=== PATIENT | female | born 1955 | race Caucasian/White ===

== ENCOUNTER 2020-08-17 11:11 | Outpatient (RCR) | payer MEDICARE, SELFPAY ==
[2020-08-17 11:20] VITALS: BMI 31.1
== END 2020-11-06 14:41 | disposition home or self-care (01) ==
LOC: ANHDMC 11:11
PROVIDERS: PCP Nurse Practitioner Family; Visit Provider Nurse Practitioner Family
DX: R73.03 Prediabetes (principal); N18.1 Chronic kidney disease, stage 1; Z71.3 Dietary counseling and surveillance
CPT/HCPCS: 97802

== ENCOUNTER 2023-01-13 01:05 | Day surgery (SDC) | payer MEDICARE, SELFPAY ==
[2022-12-25 14:12] VITALS: BMI 34.5
--- NOTE | 2023-01-12 18:21 | PM.HPGS ---
History of Present Illness History of Present Illness Consent: Risks, benefits, and alternatives have been discussed and questions answered. Patient agrees to proceed with procedure. Chief complaint: neoplasm screening Narrative: Zenia Torres is a 67 year old female referred for colon cancer screening. Review of Systems Review of Systems: All systems reviewed & are unremarkable except as noted in HPI and below PMFSH Past Medical History Medical History HTN (hypertension) Hyperlipidemia ASTRID (obstructive sleep apnea) Social History Social History Smoking status: Never smoker Alcohol use details: rarely Substance use type: does not use Spiritual care concerns: No Meds Home Medications and Allergies Home Medications Medication Instructions Recorded Confirmed Type atorvastatin 20 mg tablet 20 mg PO DAILY 12/25/22 01/13/23 History cetirizine 10 mg tablet 10 mg PO DAILY 12/25/22 01/13/23 History ergocalciferol (vitamin D2) 1,250 1,250 mcg PO WEEKLY 12/25/22 01/13/23 History mcg (50,000 unit) capsule levothyroxine 125 mcg tablet 125 mcg PO DAILY 12/25/22 01/13/23 History losartan 100 mg tablet 100 mg PO DAILY 12/25/22 01/13/23 History montelukast 10 mg tablet 10 mg PO DAILY 12/25/22 01/13/23 History omega-3 fatty acids 1,000 mg PO DAILY 12/25/22 01/13/23 History psyllium seed (sugar) oral packet 1 packet PO DAILY PRN Constipation 12/25/22 01/13/23 History venlafaxine 37.5 mg tablet 37.5 mg PO TID 12/25/22 01/13/23 History vitamin B complex 1 tablet PO DAILY 12/25/22 01/13/23 History Allergies Allergy/AdvReac Type Severity Reaction Status Date / Time naproxen [From Naprosyn] AdvReac Gastrointestinal Verified 01/13/23 06:46 Upset Exam Const: General: alert Orientation/consciousness: patient oriented x3 Resp: Auscultation: clear to auscultation bilaterally Cardio: Rhythm: regular rhythm GI: GI Palp: Yes Soft to palpation and No Tenderness to palpation present (GI) Neuro: General: patient oriented x3 Assessment and Plan Assessment and plan (1) Colon cancer screening: Code(s): Z12.11 - Encounter for screening for malignant neoplasm of colon Status: Acute Assessment and Plan: Colonoscopy with possible biopsy or polypectomy or cautery or injection of substances.
[2023-01-13 06:47] VITALS: BP 138/90; PULSE 65; RESP 16; TEMP 36.4; O2SAT 99; BMI 34.7
[2023-01-13] MEDS: LACTATED RINGERS 1,000 ML 150 ML IV CONT (07:02)
--- NOTE | 2023-01-13 07:15 | P.PNAN_ITS ---
Anes - Initial Pre Proc Eval Procedure: Operation Date: 01/13/23 08:00 Proposed Procedures p Colonoscopy - Gerhard Cevallos MD Date/Time: 01/13/23 07:15 Surgeon: Gerhard Cevallos MD Pre Op Diagnosis: neoplasm screening Patient Data Age: 67 Gender: F Height: 1.7 m Weight: 100.4 kg Last Vital Signs Temp 36.4 C 01/13/23 06:47 Pulse 65 01/13/23 06:47 Resp 16 01/13/23 06:47 BP 138/90 01/13/23 06:47 Pulse Ox 99 01/13/23 06:47 O2 Del Method Room Air 01/13/23 06:47 Allergies Allergy/AdvReac Type Severity Reaction Status Date / Time naproxen [From Naprosyn] AdvReac Gastrointestinal Verified 01/13/23 06:46 Upset Home Medications Medication Instructions Recorded Confirmed Type atorvastatin 20 mg tablet 20 mg PO DAILY 12/25/22 01/13/23 History cetirizine 10 mg tablet 10 mg PO DAILY 12/25/22 01/13/23 History ergocalciferol (vitamin D2) 1,250 1,250 mcg PO WEEKLY 12/25/22 01/13/23 History mcg (50,000 unit) capsule levothyroxine 125 mcg tablet 125 mcg PO DAILY 12/25/22 01/13/23 History losartan 100 mg tablet 100 mg PO DAILY 12/25/22 01/13/23 History montelukast 10 mg tablet 10 mg PO DAILY 12/25/22 01/13/23 History omega-3 fatty acids 1,000 mg PO DAILY 12/25/22 01/13/23 History psyllium seed (sugar) oral packet 1 packet PO DAILY PRN Constipation 12/25/22 01/13/23 History venlafaxine 37.5 mg tablet 37.5 mg PO TID 12/25/22 01/13/23 History vitamin B complex 1 tablet PO DAILY 12/25/22 01/13/23 History Patient hx anesthesia problems: none Family hx anesthesia problems: none Results Review: All pre-operative results and documents have been reviewed as part of the pre- operative evaluation. [facility] Past Medical History Medical History (Updated 01/13/23 @ 07:16 by Shadi Cai MD) HTN (hypertension) Hyperlipidemia ASTRID (obstructive sleep apnea) Social History Social History Smoking status: Never smoker Alcohol use details: rarely Substance use type: does not use Spiritual care concerns: No Anes - Eval Final PreProcedure Day of Procedure 01/13/23 07:15 Patient weight: obese Heart: regular rate and rhythm Lungs: clear to auscultation Airway: Mallampati scale class II Neurological: alert and oriented Last oral intake: >/= 8 hours ASA classification: III Emergent: no Anesthetic plan: proceed Anesthesia type and monitoring: general GIVS and standard monitoring Results Review: All pre-operative results and documents have been reviewed as part of the pre- operative evaluation. Informed Consent: The patient's anesthetic plan and its attendant risks and benefits were discussed with the patient/family/POA. Questions were solicited and answers provided to the satisfaction of the patient/family/POA.
[2023-01-13 08:29] VITALS: BP 117/84; PULSE 78; RESP 20; O2SAT 97
[2023-01-13 08:39] VITALS: BP 136/86; PULSE 76; RESP 18; O2SAT 97
[2023-01-13 08:48] VITALS: BP 138/84; PULSE 78; RESP 18; O2SAT 97
--- NOTE | 2023-01-13 10:45 | SUR.PHASEII ---
1035 Patient called the Surgery Director James Mims with concerns of her mouth being extremely dry and when she attempted to eat she choked on her food twice. She expressed to him her concerns that she maybe having an reaction to the anesthesia. 1037 I called patient to check on her and review her symptoms. Patient states her mouth feels real pasty and extremely dry like she has no saliva in her mouth. She also complains the the roof of her mouth is raw and her throat is really sore and increasingly getting worse since she was discharged. I told the patient that I would speak with her MOTOR ROUTE CARRIER about her concerns and would get back to her as soon as I talked with her Lazara her MOTOR ROUTE CARRIER. 1040 I spoke with Lazara the MOTOR ROUTE CARRIER about the patient complaints/concerns. Alzara said she had to give her several doses of glycopyrrolate because of her low heart rate during the procedure which will cause her mouth to be dry probably most of the day today. Dr. Cevallos was also present for this conversation. Dr. Cevallos recommended the patient try drinking frequent amounts of water to day and could try sucking on a piece of hard candy to help with the mouth dryness. I also mention to the Lazara that the patient complained that the roof of her mouth felt raw and that her throat is sore. Brittny said she did have to use some oral suction because the patient had vomited during the procedure and she was able to suction her out but that it is possible that the acid from the vomit is what is causing the raw and soreness. 1045 I called the patient back and went over the conversation that I had with Brittny about the medication she received during the procedure and the side effects of the mouth dryness. We discussed taking frequent sips of water to help with the dryness and also using hard candy to help with the moisture. I mention that if the roof of her mouth was to sore for the hard candy to try putting it on the side of her mouth to help the pain of the roof of her mouth. I did tell that we would call her tomorrow to check on her as well. Patient voiced understanding and also asked that in the future if we could relay this information to the patient with the discharge instructions that would be better. I told her I would follow up with the anesthesia team to see if we could make that change. I thanked her for the suggestion.
== END 2023-01-13 09:10 | disposition home or self-care (01) ==
PROVIDERS: PCP Nurse Practitioner Family; Visit Provider Internal Medicine Gastroenterology
PROC: 0DJD8ZZ Inspection of Lower Intestinal Tract, Via Natural or Artificial Opening Endoscopic (ICD-10-PCS; CPT 45378; principal; 2023-01-13 08:00)
DX: Z12.11 Encounter for screening for malignant neoplasm of colon (principal); D12.2 Benign neoplasm of ascending colon; K64.8 Other hemorrhoids; K57.30 Diverticulosis of large intestine without perforation or abscess without bleeding; I10 Essential (primary) hypertension; E78.5 Hyperlipidemia, unspecified; G47.33 Obstructive sleep apnea (adult) (pediatric); E66.9 Obesity, unspecified; Z68.34 Body mass index [BMI] 34.0-34.9, adult
CPT/HCPCS: 45385; 88305; J2704; J7120

== ENCOUNTER 2024-07-02 13:08 | Outpatient (CLI) | payer MEDICARE, SELFPAY ==
--- NOTE | ~2024-07-02 | CT_ITS ---
CLINICAL INDICATION: Chronic right hip pain. COMPARISON: Reference is made to MRI examination of both the pelvis and the right hip. TECHNIQUE: Computed tomography (CT) of the pelvis was performed without intravenous contrast. The dos e-length product was 888.57 mGy-cm. FINDINGS/OBSERVATIONS: Gastrointestinal tract: Unremarkable Vasculature: Unremarkable Lymph nodes: Limited evaluation without intravenous contrast Pelvic structures:14 mm calcification projecting over the left ovary, possibly perioperative. The wero dder is only minimally distended. Body wall and musculoskeletal: No asymmetry within the musculature of the pelvis or right hip. IMPRESSION: No acute fracture. Unremarkable CT examination of the pelvis, as detailed above. Reviewed, dictated and finalized at location A. [employer] TECHNICIAN
--- OUTSIDE RECORDS SUMMARY | 2024-07-02 13:13 | XMS_ITS | Clinical Summary ---
Author Organization [facility] Address [address] [place] [address] Care Team Providers Care Maintenance Shop Laborer Name Role Phone Angie Waite MD Primary Care Provider [phone] Source Comments [facility],non-owned Affiliates and Associated Physician Practices is amultiple site organization consisting of ambulatory clinics and hospital sitesin [place], [place], [place] and [place]. This disclosure is being madepursuant to the Care Everywhere program and may not contain all information available regarding this patient. Last updated 18.[facility] Allergies Active Allergy Reactions Criticality Noted Date Comments Naproxen Other 08/25/2018 syncope Medications * Be aware that medications may not be up to date on this document. Alwaysverify current medications with the patient. Medication Sig Dispensed Refills Start Date End Date Status lisinopril-hydroCHLOR Othiazide (PRINZIDE; ZESTORETIC) 20-12.5 MG tablet Take 1 tablet by mouth once daily Active levothyroxine (SYNTHROID) 112 MCG tablet Take 112 mcg by mouth daily before breakfast Active montelukast (SINGULAIR) 10 MG tablet Take 10 mg by mouth at bedtime Active venlafaxine (EFFEXOR) 37.5 MG tablet Take 37.5 mg by mouth 3 times daily with meals Active cetirizine (ZYRTEC) 10 MG tablet Take 10 mg by mouth once daily Active Potassium 99 MG tablet Take 99 mg by mouth once daily Active Cholecalciferol (VITAMIN D3 PO) Active Social History Tobacco Use Types Packs/Day Years Used Date Smoking Tobacco: Never Assessed Sex and Gender Information Value Date Recorded Sex Assigned at Not on file Gender Identity Not on file Sexual Orientation Not on file Plan of Treatment Health Maintenance Due Date Last Done Comments BONE DENSITY TESTING 1955 COLOGUARD (AGES 45-75) - COL ON CA SCREENING 1953 COLON MONITORING 1953 COLONOSCOPY - COLON CA SCREENING 1953 CT COLONOGRAPHY - COLON CA SCREENING 1953 Colorectal Cancer Screening 1953 FIT - COLON CA SCREENING 1953 FLEX SIG - COLON CA SCREENING 1953 LIPID TESTING 1953 MAMMOGRAM 1953 MEDICARE AWV 12 MONTHS 1953 HEPATITIS C SCREENING 05/07/1971 DTAP/TDAP/TD VACCINES (1 - Tdap) 1972 PNEUMOCOCCAL VACCINE 50+ (1 of 1 - PCV) 2003 ZOSTER VACCINE (1 of 2) 2003 COVID-19 VACCINE ( - 2023-2 5 season) 2024 INFLUENZA VACCINE (#1) 2024 DEPRESSION SCREENING 05/26/2024 Respiratory Syncytial Virus (RSV) Vaccine Pt: or over 60 yrs (1 - 1-dose 75+ series) 2028 HEPATITIS B VACCINE Aged Out No longe r eligible based on patient's age to complete this topic HIB VACCINE Aged Out No longer eligi ble based on patient's age to complete this topic HPV VACCINE Aged Out No longer eligi ble based on patient's age to complete this topic MENINGOCOCCAL (Group B) VACCINE Aged Out No longer eligible based on patient's age to complete this topic MENINGOCOCCAL VACCINE Aged Out No poonam pako eligible based on patient's age to complete this topic Care Teams Maintenance Shop Laborer Relationship Specialty Start Date End Date Angie Waite MD [address] [facility] [address] [place] [phone] PCP - General Internal Medicine 08/25/18
--- OUTSIDE RECORDS SUMMARY | 2024-07-02 13:13 | XMS_ITS | Patient Health Summary ---
Author Organization [facility] Address [address] [place] [address] Care Team Providers Care Paper Making Machine Operator Name Role Phone Angie Waite MD Primary Care Provider [phone] Note from [facility],non-owned Affiliates and Associated Physician Practices is amultiple site organization consisting of ambulatory clinics and hospital sitesin [place], [place], [place] and [place]. This disclosure is being madepursuant to the Care Everywhere program and may not contain all information available regarding this patient. Last updated 18.[facility] Allergies * Naproxen(Other) Medications * Be aware that medications may not be up to date on this document. Alwaysverify current medications with the patient. * lisinopril-hydroCHLOROthiazide (PRINZIDE; ZESTORETIC) 20-12.5 MG tablet Take 1 tablet by mouth once daily * levothyroxine (SYNTHROID) 112 MCG tablet Take 112 mcg by mouth daily before breakfast * montelukast (SINGULAIR) 10 MG tablet Take 10 mg by mouth at bedtime * venlafaxine (EFFEXOR) 37.5 MG tablet Take 37.5 mg by mouth 3 times daily with meals * cetirizine (ZYRTEC) 10 MG tablet Take 10 mg by mouth once daily * Potassium 99 MG tablet Take 99 mg by mouth once daily * Cholecalciferol (VITAMIN D3 PO) Social History Tobacco Use Types Packs/Day Years Used Date Smoking Tobacco: Never Assessed Sex and Gender Information Value Date Recorded Sex Assigned at Not on file Gender Identity Not on file Sexual Orientation Not on file Procedures * DERMATOPATHOLOGY(Performed 08/12/2023) Performed for Neoplasm of uncertain behavior of skin * SKIN TEST PPD - POINT OF CARE(Performed 08/25/2018) Performed for Screening examination for pulmonary tuberculosis Results * DERMATOPATHOLOGY (08/12/2023 3:33 AM CDT) Case Report Dermatopathology Report Case: [id number] Authorizing Provider: Pako Campbell MD Collected: 08/12/2023 03:33 AM Ordering Location: [facility] - Received: 08/13/2023 12:07 PM DermPath Lab Pathologist: Shruti Pennington MD Specimen: Skin, left medial malar cheek 2:09 PM CDT DERMATOPATHOLOGY LABORATORY Final Diagnosis Specimen A. SKIN, left medial malar cheek: BASAL CELL CARCINOMA, NODULAR TYPE (C44.319) 2:09 PM CDT DERMATOPATHOLOGY LABORATORY Clinical History Neoplasm of Uncertain Behavior vs Basal Cell Carcinoma 2:09 PM CDT DERMATOPATHOLOGY LABORATORY Gross Description Specimen A: Received is one formalin filled container labeled with the patient's name and designated left medial malar cheek. The specimen consists of a shave biopsy measuring 5x3x1 mm. Jar 0. 2:09 PM CDT DERMATOPATHOLOGY LABORATORY Microscopic Description Specimen A. SKIN, left medial malar cheek: Within the dermis there are aggregates of basaloid cells with a high nuclear to cytoplasmic ratio and peripheral palisading. 2:09 PM CDT DERMATOPATHOLOGY LABORATORY Disclaimer An external and internal positive and negative controls are appropriate for the histochemical, immunohistochemical and immunofluorescence stain(s) in this case (if any), except where stated explicitly. The performance characteristics of the stain(s) cited in this report were developed and its performance characteristic determined by the Dermatopathology Laboratory at [facility], directed by Dr. Jose Cooper. These tests need not be, and therefore are not, approved by the [place] Food and Drug Administration. The tests are used for clinical purposes. Billing Codes Specimen Charges Stain Charges 19069 1 4 2:09 PM CDT DERMATOPATHOLOGY LABORATORY Embedded Images 2:09 PM CDT DERMATOPATHOLOGY LABORATORY Pathology/Cytolo gy TISSUE SPECIMEN FROM SKIN / Unknown 08/12/2023 3:33 AM CDT 08/13/2023 12:07 PM CDT Pako Campbell MD LAB - PATHOLOGY/CYTO LOGY ORDERABLES DERMATOPATHOLOGY LABORATORY [facility] Department of Dermatology [address] [phone] * SKIN TEST PPD - POINT OF CARE (08/25/2018) PPD 0 mm normal no induration Other MISCELLANEOUS SAMPLE S / Unknown 08/25/2018 Mary Rosario [employer] EQUIPMENT OPERATOR-PRINT MACHINE OPERATOR LAB - POINT O F CARE ORDERABLES Care Teams Paper Making Machine Operator Relationship Specialty Start Date End Date Angie Waite MD [address] [facility] [address] [place] [phone] PCP - General Internal Medicine 08/25/18
--- OUTSIDE RECORDS SUMMARY | 2024-07-02 13:13 | XMS_ITS | Encounter Summary ---
Author Organization [facility] Address [address] [place] [address] Care Team Providers Care Support Manager Name Role Phone Angie Waite MD Primary Care Provider [phone] Encounter Details Date Type Department Care Team (Late st Contact Info) Description 08/12/2023 Lab Requisition [facility] - DermPath Lab [address] [place] [id number] Pako Campbell MD [facility] DERMATOLOGY [address] [place] [phone] Neoplasm of uncertain behavior of skin Social History Tobacco Use Types Packs/Day Years Used Date Smoking Tobacco: Never Assessed Sex and Gender Information Value Date Recorded Sex Assigned at Not on file Gender Identity Not on file Sexual Orientation Not on file documented as of this encounter Plan of Treatment Not on file documented as of this encounter Procedures Procedure Name Priority Date/Time Associated Diagnosis Comments DERMATOPATHOLOGY Routine 08/12/2023 3:33 AM CDT Neoplasm of uncertain behavior of skin documented in this encounter Results * DERMATOPATHOLOGY (08/12/2023 3:33 AM CDT) Case Report Dermatopathology Report Case: [id number] Authorizing Provider: Pako Campbell MD Collected: 08/12/2023 03:33 AM Ordering Location: [facility] - Received: 08/13/2023 12:07 PM DermPath Lab Pathologist: Shruti Pennington MD Specimen: Skin, left medial malar cheek 03/21/202 4 2:09 PM CDT DERMATOPATHOLOGY LABORATORY Final Diagnosis Specimen A. SKIN, left medial malar cheek: BASAL CELL CARCINOMA, NODULAR TYPE (C44.319) 4 2:09 PM CDT DERMATOPATHOLOGY LABORATORY Clinical History Neoplasm of Uncertain Behavior vs Basal Cell Carcinoma 4 2:09 PM CDT DERMATOPATHOLOGY LABORATORY Gross Description Specimen A: Received is one formalin filled container labeled with the patient's name and designated left medial malar cheek. The specimen consists of a shave biopsy measuring 5x3x1 mm. Jar 0. 4 2:09 PM CDT DERMATOPATHOLOGY LABORATORY Microscopic Description Specimen A. SKIN, left medial malar cheek: Within the dermis there are aggregates of basaloid cells with a high nuclear to cytoplasmic ratio and peripheral palisading. 4 2:09 PM CDT DERMATOPATHOLOGY LABORATORY Disclaimer An external and internal positive and negative controls are appropriate for the histochemical, immunohistochemical and immunofluorescence stain(s) in this case (if any), except where stated explicitly. The performance characteristics of the stain(s) cited in this report were developed and its performance characteristic determined by the Dermatopathology Laboratory at [facility], directed by Dr. Jose Cooper. These tests need not be, and therefore are not, approved by the [place] Food and Drug Administration. The tests are used for clinical purposes. Billing Codes Specimen Charges Stain Charges 57114 1 4 2:09 PM CDT DERMATOPATHOLOGY LABORATORY Embedded Images 4 2:09 PM CDT DERMATOPATHOLOGY LABORATORY Pathology/Cytolo gy TISSUE SPECIMEN FROM SKIN / Unknown 08/12/2023 3:33 AM CDT 08/13/2023 12:07 PM CDT Pako Campbell MD LAB - PATHOLOGY/CYTO LOGY ORDERABLES DERMATOPATHOLOGY LABORATORY [facility] - Department of Dermatology [address] [phone] documented in this encounter Visit Diagnoses Diagnosis Neoplasm of uncertain behavior of skin documented in this encounter Care Teams Support Manager Relationship Specialty Start Date End Date Angie Waite MD [address] [place] [address] [place] [phone] PCP - General Internal Medicine 08/25/18 documented as of this encounter
--- OUTSIDE RECORDS SUMMARY | 2024-07-02 13:13 | XMS_ITS | Referral Summary ---
Author Organization [facility] Address [address] [place] [address] Care Team Providers Care Religion Professor Name Role Phone Angie Waite MD Primary Care Provider [phone] Source Comments [facility] [id number],non-owned Affiliates and Associated Physician Practices is amultiple site organization consisting of ambulatory clinics and hospital sitesin [place], [place], [place] and [place]. This disclosure is being madepursuant to the Care Everywhere program and may not contain all information available regarding this patient. Last updated 18.[facility] [id number] Allergies Active Allergy Reactions Criticality Noted Date [...] Orientation Not on file Plan of Treatment Not on file Administered Medications Care Teams Religion Professor Relationship Specialty Start Date End Date Angie Waite MD [address] [facility] [address] [place] [phone] PCP - General Internal Medicine 08/25/18
--- OUTSIDE RECORDS SUMMARY | 2024-07-02 13:14 | XMS_ITS | CONTINUITY OF CARE DOCUMENT ---
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 Role Phone Nelson ARROYO, Demetria Unavailable [phone] ROSSYMILKAGHANSHYAM Unavailable [phone] HOPGAGANDEEP JARQUINIE Unavailable [phone] PROBLEMS Condition Status Date Provider Notes Chest pressure--stress nuc normal 06/2021,, mild diastolic dysfn on echo 11/2019 active Demetria Ashford MD CKD active Amari Robb Family History of Sudden Car diac : completed - Demetria Ashford MD Gout active Demetria Ashford MD Hypothyroidism active Demetria Ashford MD Hypertension active Demetria Ashford MD Pre-diabetes active Demetria Ashford MD FAMILY HISTORY OF HEART DISEASE active Bo Ashford MD Hyperlipidemia active Demetria Ashford MD Vaccination--covid vaccine, pfizer 06/2020 completed - Amari Robb ENCOUNTERS Date Type Provider Location Encounter Diag nosis - In-person encounter Office Visit Demetria Ashford MD [place] [facility] CKDVaccination--covid vaccine, pfizer 06/2020 - In-person encounter Office Visit Demetria Ashford MD [facility] - In-person encounter Office Visit Demetria Ashford MD [facility] - In-person encounter Office Visit Demetria Ashford MD [facility] Chest pressure--stress nuc normal 06/2021,, mild diastolic dysfn on echo 11/2019 - In-person encounter Office Visit Kenneth Miranda MD [facility] - In-person encounter Office Visit Demetria Ashford MD [facility] Chest pressure--stress nuc normal 06/2021,, mild diastolic dysfn on echo 11/2019Family History of Sudden Cardiac :FAMILY HISTORY OF HEART DISEASEHyperlipidemia - In-person encounter Office Visit Demetria Ashford MD [place] [facility] Chest pressure--stress nuc normal 06/2021,, mild diastolic dysfn on echo 11/2019CKDGoutHypothyroidismH ypertensionPre-diabetes VITAL SIGNS Date Observation Value Provider Body Mass Index (Ratio) 33.98 kg/m2 Bo Ashford MD blood pressure, diastolic 94 mm[Hg] Milton Murillo RN blood pressure, systolic 129 mm[Hg] Oma Murillo RN oxygen saturation, oximetry 98 % Oma Murillo RN respiratory rate E&M 18 /min Oma ibanez RN pulse rate, standing 98 /min Oma ibanez RN weight E&M 217 [lb_av] Oma Murillo RN Body Mass Index (Ratio) 34.42 kg/m2 Bo Ashford MD blood pressure, diastolic 93 mm[Hg] Tamara nkLogcathy blood pressure, systolic 151 mm[Hg] Nida Sethogcathy respiratory rate E&M 20 /min Merary Moise pulse rate 71 /min Merary Moise blood pressure, cuff size regular Sanjuana Moise blood pressure, diastolic 93 mm[Hg] Sanjuana Moise blood pressure, systolic 151 mm[Hg] Jacquelyn Moise oxygen saturation, oximetry 98 % Merary Moise weight E&M 219.8 [lb_av] Merary Moise height E&M 67 [in_i] Merary Moise Body Mass Index (Ratio) 34.58 kg/m2 Bo Ashford MD blood pressure, cuff size large Marcelo alvarez [place] blood pressure, diastolic 97 mm[Hg] Ta kim [place] blood pressure, systolic 134 mm[Hg] [facility] oxygen saturation, oximetry 97 % [facility] respiratory rate E&M 16 /min [facility] pulse rate 73 /min [facility] weight E&M 220.8 [lb_av] [facility] height E&M 67 [in_i] [facility] Body Mass Index (Ratio) 36.18 kg/m2 Bo Ashford MD blood pressure, cuff size regular Sa ra Rodriguez blood pressure, diastolic 76 mm[Hg] Sa ra Rodriguez blood pressure, systolic 121 mm[Hg] Guerrero a Rodriguez oxygen saturation, oximetry 97 % Irish Rodriguez respiratory rate E&M 17 /min Irish Si ms pulse rate 73 /min Irish Rodriguez weight E&M 231 [lb_av] Irish Rodriguez height E&M 67 [in_i] Irish Rodriguez Body Mass Index (Ratio) 35.71 kg/m2 Gagandeep philip Ramsey blood pressure, diastolic 84 mm[Hg] Li nkLogic blood pressure, systolic 130 mm[Hg] Nida kLogic blood pressure, cuff size large Ke rri Grueneelpidio blood pressure, diastolic 84 mm[Hg] Ke rri Gruenenfelder blood pressure, systolic 130 mm[Hg] Praveen Warrenelder oxygen saturation, oximetry 94 % Karina Robisoner respiratory rate E&M 16 /min Karina moraleselder pulse rate 80 /min Karina Warrene lder weight E&M 228 [lb_av] Karina Warrene lder height E&M 67 [in_i] Karina Warrene er Body Mass Index (Ratio) 32.57 kg/m2 Bo Ashford MD blood pressure, diastolic 82 mm[Hg] Li nkLogic blood pressure, systolic 118 mm[Hg] Nida kLogic oxygen saturation, oximetry 97 % Chastity Katie blood pressure, diastolic 82 mm[Hg] Ch astity Katie blood pressure, systolic 118 mm[Hg] Chikis stity Katie pulse rate 87 /min Chastity Katie respiratory rate E&M 16 /min Chastit y Katie weight E&M 208 [lb_av] Chastity Katie height E&M 67 [in_i] Chastity Katie Body Mass Index (Ratio) 33.36 kg/m2 Bo Ashford MD blood pressure, resting Yes Tons higginbotham Gomez pulse rate 84 /min Tonsha Gomez oxygen saturation, oximetry 98 % Tonsha Gomez respiratory rate E&M 16 /min Tonsha Gomez blood pressure, diastolic 84 mm[Hg] To nsha Gomez blood pressure, systolic 128 mm[Hg] Ton sha Gomez weight E&M 213 [lb_av] Tonsha Gomez height E&M 67 [in_i] Tonsha Gomez weight E&M 219 [lb_av] Jenise Montour height E&M 67 [in_i] Jenise Casas ALLERGIES Allergy Name Onset Date Reaction Criticality Status OZEMPIC GI sxs High Criticality active NAPROSYN High Criticality active RESULTS Date Observation Value Provider Reference Range Interpretation Location hemoglobin A1C, blood, as % of total hemoglobin 6.4 % OF TOTAL HGB [facility] <5.7 High thyroid stimulating hormone, serum 0.78 u[IU]/mL [facility] 0.40-4.50 Normal thyroxine, serum, free 1.1 ng/dL [facility] 0.8-1.8 Normal triiodothyronine (T3), serum 92 ng/dL [facility] 76-181 Normal basophils as percent of blood leukocytes 1.7 % [facility] Normal eosinophils as percent of blood leukocytes 5.0 % [facility] Normal monocyte count, blood 6.8 % [facility] Normal lymphocyte count, blood 38.9 % [facility] Normal neutrophils as percent of blood leukocytes 47.6 % [facility] Normal basophils, absolute, manual 102 cells/mcL [facility] 0-200 Normal eosinophils, absolute, manual 300 cells/mcL [facility] 15-500 Normal monocytes, absolute, manual 408 cells/mcL [facility] 200-950 Normal lymphocytes, absolute 2334 CELLS/UL [facility] 850-3900 Normal Absolute Neutrophil count 2856 cells/mcL [facility] 3424-7721 Normal mean platelet volume 12.1 fL [facility] 7.5-12.5 Normal platelet count 193 THOUSAND/UL [facility] 140-400 Normal red blood cell distribution width 13.9 % [facility] 11.0-15.0 Normal mean corpuscular hemoglobin concentration, RBC 31.9 G/DL [facility] 32.0-36.0 Low mean corpuscular hemoglobin, RBC 28.2 pg [facility] 27.0-33.0 Normal mean corpuscular volume, RBC 88.3 fL [facility] 80.0-100.0 Normal hematocrit, blood 42.3 % [facility] 35.0-45.0 Normal hemoglobin electrophoresis, blood 13.5 [facility] 11.7-15.5 Normal erythrocyte (RBC) count 4.79 MILLION/UL [facility] 3.80-5.10 Normal leukocyte (white blood cells) count, blood 6.0 THOUSAND/UL [facility] 3.8-10.8 Normal alanine aminotransferase (SGPT), serum 26 1/L [facility] 6-29 Normal aspartate aminotransferase (SGOT), serum 25 1/L [facility] 10-35 Normal alkaline phosphatase, serum 74 1/L [facility] 37-153 Normal bilirubin, serum, total 0.3 mg/dL [facility] 0.2-1.2 Normal albumin/globulin ratio, serum 1.8 (calc) [facility] 1.0-2.5 Normal globulins, serum, total 2.2 G/DL (CALC) [facility] 1.9-3.7 Normal albumin, serum 4.0 g/dL [facility] 3.6-5.1 Normal protein, total, serum 6.2 g/dL [facility] 6.1-8.1 Normal calcium, serum 8.6 mg/dL [facility] 8.6-10.4 Normal carbon dioxide, venous blood 26 mmol/L [facility] 20-32 Normal chloride, serum 106 mmol/L [facility] 98-110 Normal potassium, serum 4.1 mmol/L [facility] 3.5-5.3 Normal sodium, serum 140 mmol/L [facility] 135-146 Normal urea nitrogen/creatinine ratio, serum 20 (calc) [facility] 6-22 Normal creatinine, serum 1.16 mg/dL [facility] 0.60-1.00 High urea nitrogen, blood 23 mg/dL [facility] 7-25 Normal blood glucose, random 105 mg/dL [facility] 65-99 High cholesterol, non-HDL, total 74 MG/DL (CALC) [facility] <130 Normal cholesterol/HDL ratio, serum, percent 2.1 (calc) [facility] <5.0 Normal LDL cholesterol, serum 61 MG/DL (CALC) [facility] Normal triglyceride, serum, fasting 45 mg/dL [facility] <150 Normal HDL cholesterol, serum 65 mg/dL [facility] > OR = 50 Normal cholesterol, serum 139 mg/dL [facility] <200 Normal hemoglobin A1C, blood, as % of total hemoglobin 5.9 % OF TOTAL HGB [facility] <5.7 High thyroxine, serum, free 1.2 ng/dL [facility] 0.8-1.8 Normal thyroid stimulating hormone, serum 1.30 u[IU]/mL [facility] 0.40-4.50 Normal cholesterol, non-HDL, total 70 MG/DL (CALC) [facility] <130 Normal cholesterol/HDL ratio, serum, percent 2.1 (calc) [facility] <5.0 Normal LDL cholesterol, serum 56 MG/DL (CALC) [facility] Normal triglyceride, serum, fasting 49 mg/dL [facility] <150 Normal HDL cholesterol, serum 62 mg/dL [facility] > OR = 50 Normal cholesterol, serum 132 mg/dL [facility] <200 Normal hemoglobin A1C, blood, as % of total hemoglobin 6.0 % OF TOTAL HGB [facility] <5.7 High cholesterol, non-HDL, total 81 MG/DL (CALC) [facility] <130 Normal cholesterol/HDL ratio, serum, percent 2.0 (calc) [facility] <5.0 Normal LDL cholesterol, serum 67 MG/DL (CALC) [facility] Normal triglyceride, serum, fasting 48 mg/dL [facility] <150 Normal HDL cholesterol, serum 78 mg/dL [facility] > OR = 50 Normal cholesterol, serum 159 mg/dL [facility] <200 Normal hyaline casts, urine NONE SEEN [facility] NONE SEEN Normal bacteria, urine microscopy NONE SEEN [facility] NONE SEEN Normal epithelial cells, urine NONE SEEN [facility] < OR = 5 Normal RBC urine by microscopy NONE SEEN [facility] < OR = 2 Normal WBC urine on microscopy 0-5 /HPF [facility] < OR = 5 Normal leukocyte esterase, urine, by dipstick 1+ [facility] NEGATIVE Abnormal nitrite, urine, semiquantitative NEGATIVE [facility] NEGATIVE Normal blood in urine (hemoglobin) by dipstick NEGATIVE [facility] NEGATIVE Normal ketones, urine, by test strip NEGATIVE [facility] NEGATIVE Normal bilirubin, urine NEGATIVE [facility] NEGATIVE Normal glucose, urine, semiquantitative NEGATIVE [facility] NEGATIVE Normal pH, urine, semiquantitative 5.5 [facility] 5.0-8.0 Normal specific gravity, urine 1.014 [facility] 1.001-1.035 Normal appearance, urine CLEAR [facility] CLEAR Normal urine color YELLOW [facility] YELLOW Normal protein, urine, semiquantitative (dipstick) NEGATIVE [facility] NEGATIVE Normal basophils as percent of blood leukocytes 1.9 % [facility] Normal eosinophils as percent of blood leukocytes 6.2 % [facility] Normal monocyte count, blood 6.9 % [facility] Normal lymphocyte count, blood 38.3 % [facility] Normal neutrophils as percent of blood leukocytes 46.7 % [facility] Normal basophils, absolute, manual 103 cells/mcL [facility] 0-200 Normal eosinophils, absolute, manual 335 cells/mcL [facility] 15-500 Normal monocytes, absolute, manual 373 cells/mcL [facility] 200-950 Normal lymphocytes, absolute 2068 CELLS/UL [facility] 850-3900 Normal Absolute Neutrophil count 2522 cells/mcL [facility] 1212-0195 Normal mean platelet volume 12.1 fL [facility] 7.5-12.5 Normal platelet count 210 THOUSAND/UL [facility] 140-400 Normal red blood cell distribution width 13.7 % [facility] 11.0-15.0 Normal mean corpuscular hemoglobin concentration, RBC 32.2 G/DL [facility] 32.0-36.0 Normal mean corpuscular hemoglobin, RBC 27.0 pg [facility] 27.0-33.0 Normal mean corpuscular volume, RBC 83.9 fL [facility] 80.0-100.0 Normal hematocrit, blood 41.3 % [facility] 35.0-45.0 Normal hemoglobin electrophoresis, blood 13.3 [facility] 11.7-15.5 Normal erythrocyte (RBC) count 4.92 MILLION/UL [facility] 3.80-5.10 Normal leukocyte (white blood cells) count, blood 5.4 THOUSAND/UL [facility] 3.8-10.8 Normal albumin, serum 4.3 g/dL [facility] 3.6-5.1 Normal phosphate, serum 4.1 mg/dL [facility] 2.1-4.3 Normal carbon dioxide, venous blood 29 mmol/L [facility] 20-32 Normal chloride, serum 107 mmol/L [facility] 98-110 Normal potassium, serum 4.6 mmol/L [facility] 3.5-5.3 Normal sodium, serum 141 mmol/L [facility] 135-146 Normal urea nitrogen/creatinine ratio, serum 19 (calc) [facility] 6-22 Normal Estimated Glomerular Filtration Rate (calc) 48 mL/min/{1.7 3_m2} [facility] > OR = 60 Low creatinine, serum 1.31 mg/dL [facility] 0.50-0.99 High urea nitrogen, blood 25 mg/dL [facility] 7-25 Normal blood glucose, random 95 mg/dL [facility] 65-99 Normal calcium, serum 9.3 mg/dL [facility] 8.6-10.4 Normal microalbumin/creatin ine ratio, urine 4 MCG/MG CREAT [facility] <30 Normal microalbumin/total urine volume 3 mg/L [facility] Units converted. See lab report for original value. Normal creatinine, random, urine 80 mg/dL [facility] 20-275 Normal hemoglobin A1C, blood, as % of total hemoglobin 5.7 % OF TOTAL HGB [facility] <5.7 High basophils as percent of blood leukocytes 2.1 % [facility] Normal eosinophils as percent of blood leukocytes 3.7 % [facility] Normal monocyte count, blood 7.1 % [facility] Normal lymphocyte count, blood 38.3 % [facility] Normal neutrophils as percent of blood leukocytes 48.8 % [facility] Normal basophils, absolute, manual 101 cells/mcL [facility] 0-200 Normal eosinophils, absolute, manual 178 cells/mcL [facility] 15-500 Normal monocytes, absolute, manual 341 cells/mcL [facility] 200-950 Normal lymphocytes, absolute 1838 CELLS/UL [facility] 850-3900 Normal Absolute Neutrophil count 2342 cells/mcL [facility] 9782-5887 Normal mean platelet volume 12.2 fL [facility] 7.5-12.5 Normal platelet count 216 THOUSAND/UL [facility] 140-400 Normal red blood cell distribution width 13.1 % [facility] 11.0-15.0 Normal mean corpuscular hemoglobin concentration, RBC 32.3 G/DL [facility] 32.0-36.0 Normal mean corpuscular hemoglobin, RBC 28.1 pg [facility] 27.0-33.0 Normal mean corpuscular volume, RBC 86.9 fL [facility] 80.0-100.0 Normal hematocrit, blood 41.2 % [facility] 35.0-45.0 Normal hemoglobin electrophoresis, blood 13.3 [facility] 11.7-15.5 Normal erythrocyte (RBC) count 4.74 MILLION/UL [facility] 3.80-5.10 Normal leukocyte (white blood cells) count, blood 4.8 THOUSAND/UL [facility] 3.8-10.8 Normal hyaline casts, urine NONE SEEN [facility] NONE SEEN Normal bacteria, urine microscopy NONE SEEN [facility] NONE SEEN Normal epithelial cells, urine NONE SEEN [facility] < OR = 5 Normal RBC urine by microscopy NONE SEEN [facility] < OR = 2 Normal WBC urine on microscopy 0-5 /HPF [facility] < OR = 5 Normal protein, urine, semiquantitative (dipstick) NEGATIVE [facility] NEGATIVE Normal blood in urine (hemoglobin) by dipstick NEGATIVE [facility] NEGATIVE Normal ketones, urine, by test strip NEGATIVE [facility] NEGATIVE Normal bilirubin, urine NEGATIVE [facility] NEGATIVE Normal glucose, urine, semiquantitative NEGATIVE [facility] NEGATIVE Normal pH, urine, semiquantitative 6.5 [facility] 5.0-8.0 Normal specific gravity, urine 1.012 [facility] 1.001-1.035 Normal appearance, urine CLEAR [facility] CLEAR Normal urine color YELLOW [facility] YELLOW Normal erythrocyte sedimentation rate 5 mm/h [facility] < OR = 30 Normal phosphate, serum 4.3 mg/dL [facility] 2.1-4.3 Normal alanine aminotransferase (SGPT), serum 20 1/L [facility] 6-29 Normal aspartate aminotransferase (SGOT), serum 21 1/L [facility] 10-35 Normal alkaline phosphatase, serum 50 1/L [facility] 37-153 Normal bilirubin, serum, total 0.4 mg/dL [facility] 0.2-1.2 Normal albumin/globulin ratio, serum 1.7 (calc) [facility] 1.0-2.5 Normal globulins, serum, total 2.5 G/DL (CALC) [facility] 1.9-3.7 Normal albumin, serum 4.2 g/dL [facility] 3.6-5.1 Normal protein, total, serum 6.7 g/dL [facility] 6.1-8.1 Normal carbon dioxide, venous blood 33 mmol/L [facility] 20-32 High chloride, serum 100 mmol/L [facility] 98-110 Normal potassium, serum 4.5 mmol/L [facility] 3.5-5.3 Normal sodium, serum 137 mmol/L [facility] 135-146 Normal urea nitrogen/creatinine ratio, serum 18 (calc) [facility] 6-22 Normal Estimated Glomerular Filtration Rate (calc) 53 mL/min/{1.7 3_m2} [facility] > OR = 60 Low creatinine, serum 1.22 mg/dL [facility] 0.50-0.99 High urea nitrogen, blood 22 mg/dL [facility] 7-25 Normal blood glucose, random 107 mg/dL [facility] 65-99 High uric acid, serum 5.1 mg/dL [facility] 2.5-7.0 Normal calcium, serum 9.4 mg/dL [facility] 8.6-10.4 Normal microalbumin/creatin ine ratio, urine NOTE mcg/mg creat [facility] <30 Normal microalbumin/total urine volume <0.2 mg/dL [facility] See Note: Normal creatinine, random, urine 72 mg/dL [facility] 20-275 Normal HISTORY OF MEDICATION USE Medication Status Instructions Dates Provider Indications Com ments losartan 100 mg tablet active TAKE 1 TABLET BY MOUTH DAILY 12/25 Kenneth Miranda MD losartan 100 mg tablet completed Take 1 tablet by mouth once a day due for follow up 12/21 - 12/25 Emmanuel Nina losartan 100 mg tablet completed TAKE 1 TABLET ONCE DAILY - 07/23 Amari Robb atorvastatin 20 mg tablet active TAKE 1 TABLET EVERY EVENING Mariely Jaffe Ozempic 0.25 mg or 0.5 mg(2 mg/1.5 mL) pen injector completed Inject 1/4 mg subcutaneously once a week Take 0.25mg once a week x4 weeks then increase to 0.5mg weekly 12/25 - 01/19 Amari Fordi hydrochlorothiazi de 12.5 mg tablet completed Take 1 tablet by mouth once a day 06/19 - 12/17 Oma Murillo RN atorvastatin 20 mg tablet completed Take 1 tablet by mouth every evening 12/19 - Mariely Jaffe losartan 100 mg tablet completed Take 1 tablet by mouth once a day 12/19 - 12/21 Karina Bernabe cetirizine 10 mg tablet active 1 tablet by mouth once a day 12/19 Maile Wilson allopurinol 100 mg tablet completed 1 tablet by mouth once a day 12/19 - 07/23 Amari Fordtalat venlafaxine 37.5 mg tablet active Take 3 tablet by mouth once a day 01/19 Chikisstity Katie #270, 90 days supply, Prescribed by GHANSHYAM JOSHUA, Filled 01/21/2019 montelukast 10 mg tablet active Take 1 tablet by mouth once a day 01/21 Chikisstity Katie #90, 90 days supply, Prescribed by GHANSHYAM JOSHUA, Filled 01/21/2019 lisinopril-hydroc hlorothiazide 20-25 mg tablet completed Take 1 tablet by mouth once a day 01/19 - 12/19 Amari Fordi #90, 90 days supply, Prescribed by GHANSHYAM JOSHUA, Filled 04/17/2019 levothyroxine 125 mcg tablet active Take 1 tablet by mouth once a day 01/19 Amari Ramseyzai #90, 90 days supply, Prescribed by GHANSHYAM JOSHUA, Filled 04/17/2019 ergocalciferol (vitamin D2) 1,250 mcg (50,000 unit) capsule active Take 1 capsule by mouth once a week 07/09 Chastity Katie #13, 90 days supply, Prescribed by RUPERT ASHFORD, Filled 07/09/2019 calcitriol 0.25 mcg capsule completed Take 1 capsule by mouth every other day 07/01 - 07/23 Amari Fordi #90, 90 days supply, Prescribed by RUPERT ASHFORD, Filled 07/28/2019 GaviLyte-G [id number]. 86 gram recon soln completed Use ml by mouth as directed 12/15 - 07/23 Amari Robb #4000, 1 days supply, Prescribed by LANDRY ALEXANDER, Filled 12/16/2019 SOCIAL HISTORY Date Observation Value Provider alcohol use, average drinks per day social Amari Robb alcohol use yes Amari Robb smoking status Never smoker Amari Robb smoking status Never smoker Merary Moise social history reviewed E&M revi ewed - no changes required Amari Robb social history E&M S moking History: John patel has never smoked. Amari Robb smoking status Never smoker Mendy Owen social history reviewed E&M revi ewed - no changes required Demetria Ashford MD social history reviewed E&M revi ewed - no changes required Demetria Ashford MD number of grandchildren Kenneth Miranda MD social history reviewed E&M revi ewed - no changes required Kenneth Miranda MD social history E&M S moking History: John patel has never smoked. Kenneth Miranda MD smoking status Never smoker Karina niño social history E&M S moking History: John patel has never smoked. Amari Robb social history reviewed E&M revi ewed - no changes required Amari Robb smoking status Never smoker Maile toscano alcohol use, average drinks per day social Herb Kay alcohol use yes Herb Kay social history reviewed E&M revi ewed - no changes required Herb Kay social history E&M S moking History: John patel has never smoked. Herb Kay smoking status Never smoker Marcell Gomez FAMILY HISTORY Family Member Condition Father Family History of Barajas dden Cardiac : Father Family History of Hy pertension: Mother Family History of Hy pertension: INSURANCE PROVIDERS Payer name Policy type / Coverage type [place] red republican ID [place] PART B Medicare [id number] [place] [employer] Receipts [facility] HealthQx [id number] [place] Medicare [id number] ADVANCE DIRECTIVES Name Date DISCUSSED - NO DECISION MADE TREATMENT PLAN Date Name Performer [id number],S, Amari Ford i [id number],S, Amari Ahmedza i [id number],S, Amari Ahmedza i [id number],S, Amari Ahmedza i [id number],S, Amari Ahmedza i [id number],B, Amair Ahmedza i [id number],S, Amari Ahmedza i [id number],S, Amari Ahmedza i [id number],S, Amari Ahmedza i [id number],S, Amari Ahmedza i [id number],B, Amari Ahmedza i [id number],S, Amari Ahmedza i [id number],S, Amari Ahmedza i [id number],S, Amari Ahmedza i [id number],S, Amari Ahmedza i [id number],S, Amari Ahmedza i [id number],S, Amari Ahmedza i [id number],C, H er updated medication list for this problem includes: Atorvastatin 20 Mg Tablet (Atorvastatin) ..... Take 1 tablet by mouth every evening Orders: 9 9215 HIGH 40-54min (CPT-25029) S tress Exercise Cardiolite (CPT-81638) C omplete Echo (CPT-62467) L IPID PANEL (9940) H EMOGLOBIN A1c (496) Kenneth Miranda MD [id number],S,E xercise nuc stress sx concerning for [place] Kenneth Miranda MD [id number],C,B P is likely sensitive to sodium advised her to reduce intake of sodium in diet. Will restart HCTZ 12.5 daily Kenneth Miranda MD [id number],S,Check A1c and lipid panel Kenneth Miranda MD [id number],W, Demetria Ashford MD [id number],B, Demetria Ashford MD [id number],B, Demetria Ashford MD [id number],B, Demetria Ashford MD [id number],S, Demetria Ashford MD [id number],B, Demetria Ashford MD Cardiology:This visi t has been a part of the consistent, comprehensive, and ongoing management of the chronic medical condition(s) listed above for the patient. Her updated medication list for this problem includes: Losartan 100 Mg Tablet (Losartan) ..... Take 1 tablet by mouth daily Orders: C OMPREHENSIVE METABOLIC PANEL, W/EGFR (91328) L IPID PANEL (7600) H EMOGLOBIN A1c (496) C BC (INCLUDES DIFF/PLT) (6399) T SH, free T4, total T3 (7444) Demetria Ashford MD Cardiology: H er updated medication list for this problem includes: Atorvastatin 20 Mg Tablet (Atorvastatin) ..... Take 1 tablet every evening Orders: C OMPREHENSIVE METABOLIC PANEL, W/EGFR (72373) L IPID PANEL (7600) H EMOGLOBIN A1c (496) C BC (INCLUDES DIFF/PLT) (6399) T SH, free T4, total T3 (7444) Amari Robb Cardiology: O rders: C OMPREHENSIVE METABOLIC PANEL, W/EGFR (80552) L IPID PANEL (7600) H EMOGLOBIN A1c (496) C BC (INCLUDES DIFF/PLT) (6399) T SH, free T4, total T3 (7444) Her updated medication list for this problem includes: Levothyroxine 125 Mcg Tablet (Levothyroxine) ..... Take 1 tablet by mouth once a day Amari Ahmedzai Cardiology: O rders: C OMPREHENSIVE METABOLIC PANEL, W/EGFR (22267) L IPID PANEL (7600) H EMOGLOBIN A1c (496) C BC (INCLUDES DIFF/PLT) (6399) T SH, free T4, total T3 (7444) Amari Ahmedzai Cardiology: O rders: C OMPREHENSIVE METABOLIC PANEL, W/EGFR (96617) L IPID PANEL (7600) H EMOGLOBIN A1c (496) C BC (INCLUDES DIFF/PLT) (6399) T SH, free T4, total T3 (7444) Amari medzai Cardiology: H er updated medication list for this problem includes: Losartan 100 Mg Tablet (Losartan) ..... Take 1 tablet by mouth daily Orders: C OMPREHENSIVE METABOLIC PANEL, W/EGFR (20759) L IPID PANEL (7600) H EMOGLOBIN A1c (496) C BC (INCLUDES DIFF/PLT) (6399) T SH, free T4, total T3 (7444) Amari Ahmedzai Cardiology Amari Ahmedzai Cardiology Amari Ahmedzai Cardiology Amari Ahmedzai Cardiology Amari Ahmedzai Cardiology Amari Ahmedzai Cardiology Amari Ahmedzai Cardiology Amari Ahmedzai Cardiology Amari Ahmedzai Cardiology Amari Ahmedzai Cardiology Amari Ahmedzai Cardiology Amari Ahmedzai Cardiology Amari Ahmedzai Cardiology [facility]: H er updated medication list for this problem includes: Atorvastatin 20 Mg Tablet (Atorvastatin) ..... Take 1 tablet by mouth every evening Orders: 9 9215 HIGH 40-54min (CPT-19533) S tress Exercise Cardiolite (CPT-92996) C omplete Echo (CPT-95172) L IPID PANEL (7600) H EMOGLOBIN A1c (496) Kenneth Miranda MD Cardiology:Exercise nuc stress s x concerning for [place] Kenneth Miranda MD Cardiology:BP is lik lowell sensitive to sodium advised her to reduce intake of sodium in diet. Will restart HCTZ 12.5 daily Kenneth Miranda MD Cardiology:Check A1c and lipid p alie Kenneth Miranda MD Cardiology Demetria Ashford MD Cardiology Demetria Ashford MD Cardiology Demetria Ashford MD Cardiology Demetria Ashford MD Cardiology Demetria Ashford MD Cardiology Demetria Ashford MD Cardiology cpoe, review Demetria houston MD Cardiology cpoe, review Demetria houston MD Cardiology cpoe, review Demetria houston MD Cardiology cpoe, review Demetria houston MD Date Name TSH, free T4, total T3 CBC (INCLUDES DIFF/P LT) HEMOGLOBIN A1c LIPID PANEL COMPREHENSIVE METABO LIC PANEL, W/EGFR Sleep Study Home HEMOGLOBIN A1c LIPID PANEL Complete Echo Stress Exercise Card iolite Complete Echo Stress Routine HISTORY OF PROCEDURES Procedure Date Procedure Name Provider Procedure Notes S tatus Complex e/m visit add on Demetria Ashford MD completed EKG Demetria Ashford MD completed EKG Kenneth Miranda MD compl eted GOOD Ashford MD completed GOOD Ashford MD completed Stress EKG Demetria Ashford MD completed
--- OUTSIDE RECORDS SUMMARY | 2024-07-02 13:14 | XMS_ITS | Referral Summary ---
Author Organization [facility] Address [address] [place] [address] Care Team Providers Care Dredge Operator Supervisor Name Role Phone Lilly Katz NP Primary Care Provider [phone] Allergies Active Allergy Reactions Criticality Noted Date Comments Naproxen Nausea only,Other (S ee comments) High 08/25/2018 syncope syncope Medications traMADoL (ULTRAM) 50 mg tablet Take 1 tablet (50 mg total) by mouth every 8 (eight) hours as needed for pain 12 tablet 09/08/2021 Active atorvastatin (LIPITOR) 20 mg tablet 10/01/2021 Active cetirizine (ZyrTEC) 10 mg tablet daily Active cyclobenzaprine (FLEXERIL) 10 mg tablet 09/06/2021 Active hydroCHLOROthiaz mel (HYDRODIURIL) 12.5 mg tablet 08/26/2021 Acti ve levothyroxine (SYNTHROID) 125 mcg tablet 09/11/2021 Active losartan (COZAAR) 100 mg tablet 09/12/2021 Active montelukast (SINGULAIR) 10 mg tablet 09/20/2021 Active venlafaxine (EFFEXOR) 37.5 mg tablet 09/20/2021 Active Active Problems Problem Noted Date Diagnosed Date Closed nondisplaced fracture of head of left rad ius 09/10/2021 Social History Tobacco Use Types Packs/Day Years Used Date Smoking Tobacco: Never Assessed Comments Unknown Sex and Gender Information Value Date Recorded Sex Assigned at Not on file Legal Sex Female 1:14 PM BALER Gender Identity Not on file Sexual Orientation Not on file Last Filed Vital Signs Vital Sign Reading Time Taken Comments Blood Pressure 148/78 09/08/2021 7:22 PM CDT Pulse 78 09/08/2021 7:22 PM CDT Temperature 36.8 C (98.2 F) 09/08/2021 5:50 PM CDT Respiratory Rate 18 09/08/2021 7:22 PM CDT Oxygen Saturation 99% 09/08/2021 7:22 PM CDT Inhaled Oxygen Concentration - - Weight 104.3 kg (230 lb) 11/21/2021 8:54 AM CDT Height 170.2 cm (5' 7 ) 11/21/2021 8:54 AM CDT Body Mass Index 36.02 11/21/2021 8:54 AM CDT Plan of Treatment Not on file Insurance MEDICARE COMMERCIAL [facility] MEDICARE COMMERCIAL GENERIC Care Teams Dredge Operator Supervisor Relationship Specialty Start Date End Date Lilly Katz NP PCP - General Nurse Practitioner 09/08/21
--- OUTSIDE RECORDS SUMMARY | 2024-07-02 13:14 | XMS_ITS | Clinical Summary ---
Author Organization [facility] Facility Address [address] [address] Care Team Providers Care Supervisor Abattoir Name Role Phone Lilly Katz CHICKEN HANDLER-Erin Primary Care Provider Allergies Active Allergy Reactions Criticality Noted Date Comments Naproxen Nausea,Other (see comments) High 08/26/19 19 syncope Medications ergocalciferol 1.25 MG (10704 UT) capsule TAKE 1 CAPSULE BY MOUTH 1 TIME EVERY WEEK 12 capsule 1 04/07/2023 Active Social History Tobacco Use Types Packs/Day Years Used Date Smoking Tobacco: Never Smokeless Tobacco: Never Alcohol Use Standard Drinks/Week Comments Yes 0 (1 standard drink = 0.6 oz pur e alcohol) occ Comments Unknown Sex and Gender Information Value Date Recorded Sex Assigned at Not on file Legal Sex Female 3:39 PM EDT Gender Identity Not on file Sexual Orientation Not on file Last Filed Vital Signs Vital Sign Reading Time Taken Comments Blood Pressure 120/70 09/17/2022 12:54 PM CDT Pulse 85 09/17/2022 12:54 PM CDT Temperature 36.1 C (97 F) 09/17/2022 12:54 PM CDT Respiratory Rate 18 09/17/2022 12:54 PM CDT Oxygen Saturation 99% 09/17/2022 12:54 PM CDT Inhaled Oxygen Concentration - - Weight 101 kg (223 lb) 09/17/2022 12:54 PM CDT Height 170.2 cm (5' 7 ) 09/11/2021 12:33 PM CDT Body Mass Index 34.93 09/11/2021 12:33 PM CDT Plan of Treatment Upcoming Encounters Date Type Department Care Team (Late st Contact Info) Description 08/17/2024 3:15 PM CDT Office Visit [facility], [facility] [address] [facility] [address] [place] [address] Obi Clark DO [address] [facility] [address] [place] [address] Health Maintenance Due Date Last Done Comments Breast Cancer Screening 1955 Pneumococcal Vaccine: 65+ Ye ars (1 of 2 - PCV) 1959 Colorectal Cancer Screening: Annual FOBT 2002 Colorectal Cancer Screening: Colonoscopy 2002 Colorectal Cancer Screening: Sigmoidoscopy 2002 Influenza Vaccine (#1) 2024 Hepatitis B Vaccine Aged Out No longe r eligible based on patient's age to complete this topic Insurance MEDICARE [employer] Care Teams Supervisor Abattoir Relationship Specialty Start Date End Date Lilly Katz FNP-C [address] [place] [id number] PCP - General Nurse Practitioner 01/23/21
--- OUTSIDE RECORDS SUMMARY | 2024-07-02 13:14 | XMS_ITS | Clinical Summary ---
Author Organization [facility] Address [address] [place] [address] Care Team Providers Care Burglary Investigator Name Role Phone Lilly Katz NP Primary Care Provider [phone] Allergies Active Allergy Reactions Criticality Noted Date [...] on file Legal Sex Female 1:14 PM TRAINING PROGRAM ASSISTANT Gender Identity Not on file Sexual Orientation Not on file Obstetrics History Last Filed Vital Signs Vital Sign Reading [...] 11/21/2021 8:54 AM CDT Plan of Treatment Health Maintenance Due Date Last Done Comments Breast Cancer Screening-Mammogram 1955 Colon Cancer Screening-Colonoscopy 1953 Depression Screening 1953 Fall Risk Assessment 1953 Hepatitis C Screening 1953 Osteoporosis Screening-Bone Density Scan 1953 Hepatitis B Screening 1971 Zoster Vaccine (1 of 2) 2003 Well Visit 65+ 2018 Influenza Vaccine (#1) 2024 0, 03/22/2019, 03/21/2019, Additional history exists DTaP/Tdap/Td Vaccine (2 - Td or Tdap) 09/21/2028 09/21/2018 Pneumococcal vaccine 65+ Completed 021, 03/22/2019, 03/21/2019 Insurance MEDICARE COMMERCIAL GENERIC MEDICARE COMMERCIAL GENERIC Care Teams Burglary Investigator Relationship Specialty Start Date End Date Lilly Katz NP PCP - General Nurse Practitioner 09/08/21
--- OUTSIDE RECORDS SUMMARY | 2024-07-02 13:14 | XMS_ITS | Data Portability ---
Author Organization [facility], Main Office Address [address] [place] [address] Care Team Providers Care Optical Instrument Inspector Name Role Phone SRIDEVI BAUTISTA Primary Care Provider [phone] SRIDEVI BAUTISTA Referring Provider Assessment Encounter Date Assessment Date Assessment LastModified by Organization Details LastModified Time 02/18/2024 02/18/2024 68-year-old female presents for evaluation of her bilateral hips. She reports pain for several months, which began as a painful shooting pain in the groin. Since then his relocated to the side and posterior aspects of her hip. She denies any acute injury. It begins at random times. She should be walking for a while then suddenly start to have this pain. It does not hurt when she starts to walk. She has been taking turmeric, no other treatments. She reports that she previously had physical therapy which did help and she wants to do that again. Nonantalgic gait. No pain with logroll. Flexion 120, internal rotation 20, external rotation 40, no pain. 5- out of 5 hip flexion strength, positive Stinchfield. Negative straight leg raise bilaterally. She does have some pain over the SI joint. X-rays of the hips and lumbar spine were reviewed, demonstrating no acute bony abnormality with the hip, mild joint space narrowing and sclerosis. 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 For her hip, she does not have severe arthritis and given the description of radiating pain in different locations, may be coming more from the spine rather than the hip. We will send her back to physical therapy since she had good results with that before and wants to do that again. We will also give her a order for meloxicam. She may follow-up as needed. She also mentioned having pain in her wrist at the base of the thumb. She has been wearing a carpal tunnel brace for it. She has tenderness at the thumb CMC, positive grind. No x-rays were taken for that. 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 I recommended a thumb spica brace. She she would also be helped by the meloxicam for that. [email or web address] Not available 02/18/2024 15:33:54 04/28/2024 04/28/2024 Addendum: 05/14/2024: 04/29/2024: Gluc 106, Cr 1.12, GFR 53 Case sent [email or web address] Not available 05/14/2024 19:50:34 Plan of Treatment Reminders Order Date Submit Date Provider Last Modified By Organization Details Last Modified Time Details Appointments Medicare Wellness 15 2024 08:45A M Gus mayes MD Not available Not available Not available Lab lipid panel, serum 2023 024 [employer] [facility], [address], [address], [place], [address], 06/07/2024 07:24:32 CMP, serum or plasma 2023 024 [employer] [facility], [address], [address], [place], [address], 03/30/2024 08:05:24 renal function panel, serum 2023 024 [email or web address] [employer] [facility], [address], [address], [place], [address], 02/02/2024 09:13:40 CBC w/ auto diff 2023 024 [employer] [facility], [address], [address], [place], [address], 03/30/2024 08:05:25 TSH + free T4, serum 2023 024 [facility], [address], [address], [place], [address], 02/02/2024 09:14:07 HbA1c (hemoglob in A1c), blood 2023 024 [email or web address] [facility], [address], [address], [place], [address], 03/30/2024 11:24:35 hepatitis C virus Ab, serum 2023 024 [email or web address], [address], [address], [place], [address], 04/06/2024 08:18:15 vitamin D, 25-hydrox y, total, serum 2023 024 [facility], [address], [address], [place], [address], 04/30/2024 11:37:23 CMP, serum or plasma 2023 024 [facility], [address], [place], [address], 04/30/2024 11:37:18 CBC w/ auto diff 2023 024 [email or web address], [address], [address], [place], [address], 04/30/2024 11:37:19 T4, free, serum 2023 024 [facility], [address], [address], [place], [address], 04/30/2024 11:37:21 lipid panel, serum 2023 024 [email or web address], [address], [address], [place], [address], 04/30/2024 11:37:16 TSH, serum or plasma 2023 024 [facility], [address], [address], [place], [address], 04/30/2024 11:37:22 Referral pulmonolo gist referral 2023 024 supriya Moralez [facility], [address], [address], [place], [address], 06/01/2024 08:25:47 orthopedi c surgeon referral - She is also having left thumb and elbow pain 2023 024 [facility], [address] [facility], [place], [address], 02/18/2024 16:05:08 physical therapist referral - patient to schedule 2023 024 [facility], [address], [place], [address], 03/02/2024 12:32:13 gynecolog ist referral - Please call patient to schedule. 2023 024 manolo Hsu MD, [address], [address], [place], [address], 07/01/2024 08:26:41 Procedures None recorded. Surgeries None recorded. Imaging MAMMO, screening , bilateral 2023 024 [facility] ([facility]), [address] [place], [address], 08/08/2023 20:21:55 MRI, hip, w/o contrast - Please call patient to schedule. 2023 024 [facility] ([facility]), [address], [place], [address], 05/04/2024 17:23:53 MRI, pelvis, w/o contrast - Please call patient to schedule. 2023 [facility] ([facility]), [address] [place], [address], 05/04/2024 17:56:40 US, thyroid - Please call patient to schedule. [email or web address] [place] [address] ([facility]), [address] [place], [address], 06/15/2024 16:38:38 Medication Orders venlafaxi ne ER 150 mg capsule,e xtended release 24 hr 2023 [facility]07898, [address], [place], [id number], 07/29/2023 11:38:[address] 10 mg tablet 2023 [facility] #26187, [address] [place], [place], [id number], 07/29/2023 11:38:31 levothyro xine 125 mcg tablet 2023 024 [facility] #80247, [address] [place], [place], [id number], 07/29/2023 11:38:31 atorvasta tin 20 mg tablet 2023 [facility] #68004, [address] [place], [place], [id number], 07/29/2023 11:38:30 ergocalci ferol (vitamin D2) 1,250 mcg (50,000 unit) capsule 2023 [facility] #29042, [address] [place], [place], [id number], 07/29/2023 11:38:33 Mobic 15 mg tablet 2023 [facility]06810, [address], [place], [id number], 03/30/2024 10:52:55 Patient TargetsNo targets recorded. Patient Instructions Encounter Date Encounter Id Patient Instructions Last Modified By Organization Details Last Modified Time 07/29/2023 [id number] Follow up in 6 months Labs ordered Medications ordered Continue to follow up with dermatology Not available 07/29/2023 11:30:24 01/29/2024 [id number] Follow up in 2 months for MAWV Tests: Referral: Orthopedics-Right hip pain-[facility] Pulmonology-Muriel Moralez[facility] Recommend: Influenza vaccine Shingles vaccine Not available 01/29/2024 10:21:32 03/30/2024 [id number] dementia rating scale-2* Not available 03/30/2024 11:10:29 multi-dimensiona l health assessment questionnaire* Not available 03/30/2024 11:10:29 care plan* MCKENNA Not available 03/30 12:48:09 advance directiv es: care instructions Not available 03/30/2024 11:10:29 advance care planning: care instructions Not available 03/30/2024 11:10:29 [place] Advance Directives Not available 03/30/2024 11:10:29 Follow up in 6 months Obtain labs Tests: Referral: Recommend: Shingles vaccine Personalized Health Plan and Screening Recommendations Advance Directives - Do you have one? No You have indicated that you are capable of preparing your advance care directive Advance Directives - Do we have your advance directive on file in your health record? Primary Prevention/Interven tion (prevents or decreases the chance of common diseases from occurring) Smoking Risk: Non Smoker Alcohol Misuse Screening: Negative Weight: Appropriate Overwei ght continue your current weight loss efforts try to lose 5% of your body weight try to lose 10% of your body weight Physical activity: Appropriate physical activity minimum of 10-20 minutes of activity that causes mild breathlessness/day minimum of 20-30 minutes activity that causes mild breathlessness/day Nutrition: Good Average Refer to attached handout Heart-Healthy Diet: After Your Visit Refer to attached handout DASH Diet: After Your Visit Fall Risk (screened today): Low Refer to attached handout Preventing Falls: After your Visit Vaccines Pneumococcal: Ordered Recommended today Recommended today, but you have declined No further needed Influenza: Chronic Disease Risks Stroke: Low Risk I have no recommendations Heart Attack: Low risk I have no recommendations Clogging of the Arteries: Low risk I have no recommendations Diabetes: Low Risk I have no recommendations Ref er to attached handout P re-diabetes: After Your Visit Drastically limit sugar and products made with any type of flour (bread, pasta, cereal, cookies, crackers, etc.) Secondary Prevention/Interven tion (detects treatable diseases before they may cause symptoms, disability, or ) Breast Cancer Screening with mammogram: No screening necessary Cervical/Uterine/Ov diego Cancer Screening: No screening necessary Osteoporosis Screening: No screening necessary Date Screening Last Performed: __04/12/2021 _ Colon Cancer Screening: No screening necessary No screening necessary Date Screening Last Performed: _01/13/2023_ Eye Disease Screening: No Eye exam necessary Dementia Risk: Low I have no recommendations Depression Screening: Negative Not available 03/30/2024 11:08:53 Reason for Referral Claim Adjuster Referral for S leep apnea Referring Physician: Sridevi Bautista, Internal Medicine, Encounter Date: 01/29/2024 Orthopedic Surgeon Referral for Pain in right hip joint She is also having left thumb and elbow pain Referring Physician: Sridevi Bautista, Internal Medicine, Encounter Date: 01/29/2024 Physical Therapist Referral for Bilateral hip joint pain patient to schedule Referring Physician: Omar Aragon, Orthopedic Surgery, Encounter Date: 02/18/2024 Roofing Applicator Referral for Gy necologic examination Please call patient to schedule. Referring Physician: Gus Sanabria, Internal Medicine, Encounter Date: 04/28/2024 Results Created Date Observation Date Name Description Value Unit Range Abnormal Flag Note LastModifiedBy Organization Detail LastModifiedTime 04/29/20 24 04/30/2024 LIPID PANEL , STAND JORGE cholesterol, total 140 mg/dL <200 normal Not Available [facility] [address] [place], [address], 04/30/2024 11:37:16 04/29/20 24 04/30/2024 LIPID PANEL , STAND JORGE HDL cholesterol 69 mg/dL > or = 50 normal Not Available [facility] [address] [place], [address], 04/30/2024 11:37:16 04/29/20 24 04/30/2024 LIPID PANEL , STAND JORGE triglyceride s 34 mg/dL <150 normal Not Available [facility] [address] [place], [address], 04/30/2024 11:37:16 04/29/20 24 04/30/2024 LIPID PANEL , STAND JORGE LDL-choleste rol 61 mg/dL _(chrissie c) normal Refer ence range : <100 Evert able range <100 mg/dL for prima ry preve ntion ; <70 mg/dL for patie nts with CHD or diabe tic patie nts with > or = 2 CHD risk facto rs. LDL-C is now calcu lated using the Joanna n-Hop kins jordanu robb n, which is a valid ated novel farraho d harlan delgado r accur acy than the Fried abiodun equat ion in the estim ation of LDL-C . Joanna caro SS et al. TARA. 2013; 310(1 9): 2061- 2068 (http ://ed ucati on.Qu Jose valentine Arsaniss. com/f aq/FA Q164) Not Available [facility] [address] [place], [address], 04/30/2024 11:37:16 04/29/20 24 04/30/2024 LIPID PANEL , STAND JORGE chol/HDLC ratio 2.0 (calc ) <5.0 normal Not Available [facility] [address] [place], [address], 04/30/2024 11:37:16 12/05/20 24 04/30/2024 LIPID PANEL , STAND JORGE non HDL cholesterol 71 mg/dL _(chrissie c) <130 normal For patie nts with diabe kenroy plus 1 major ASCVD risk facto r, treat ing to a non-H DL-C goal of <100 mg/dL (LDL- C of <70 mg/dL ) is consi dered a thera peuti c optio n. Not Available [place] [address] [place], [address], 04/30/2024 11:37:16 04/29/20 24 04/30/2024 COMPR EHENS PRIMITIVO METAB OLIC PANEL glucose 106 mg/dL 65-99 high Fasti ng refer ence inter thomas For someo ne witho ut known diabe kenroy, a gluco se value betwe en 100 and 125 mg/dL is consi stent with predi abete s and shoul d be confi rmed with a follo w-up test. Not Available [facility] [address] [address] [place], [address], 04/30/2024 11:37:18 04/29/20 24 04/30/2024 COMPR EHENS PRIMITIVO METAB OLIC PANEL urea nitrogen (BUN) 23 mg/dL 7-25 normal Not Available [address] [address] [place], [address], 04/30/2024 11:37:18 04/29/20 24 04/30/2024 COMPR EHENS PRIMITIVO METAB OLIC PANEL creatinine 1.12 mg/dL 0.60-1 .00 high Not Available [facility] [address] [address] [place], [address], 04/30/2024 11:37:18 04/29/20 24 04/30/2024 COMPR EHENS PRIMITIVO METAB OLIC PANEL eGFR 53 mL/mi n/1.7 3m2 > or = 60 low Not Available [facility] [address] [address] [place], [address], 04/30/2024 11:37:18 04/29/20 24 04/30/2024 COMPR EHENS PRIMITIVO METAB OLIC PANEL BUN/creatini ne ratio 21 (calc ) 6-22 normal Not Available [address], [address], 04/30/2024 11:37:18 04/29/20 24 04/30/2024 COMPR EHENS PRIMITIVO METAB OLIC PANEL sodium 141 mmol/ L 135-14 6 normal Not Available [address], [address], 04/30/2024 11:37:18 04/29/20 24 04/30/2024 COMPR EHENS PRIMITIVO METAB OLIC PANEL potassium 4.3 mmol/ L 3.5-5. 3 normal Not Available [address], [address], 04/30/2024 11:37:18 04/29/20 24 04/30/2024 COMPR EHENS PRIMITIVO METAB OLIC PANEL chloride 104 mmol/ L 98-110 normal Not Available [address], [address], 04/30/2024 11:37:18 04/29/20 24 04/30/2024 COMPR EHENS PRIMITIVO METAB OLIC PANEL carbon dioxide 28 mmol/ L 20-32 normal Not Available [address], [address], 04/30/2024 11:37:18 04/29/20 24 04/30/2024 COMPR EHENS PRIMITIVO METAB OLIC PANEL calcium 8.8 mg/dL 8.6-10 .4 normal Not Available [address], [address], 04/30/2024 11:37:18 04/29/20 24 04/30/2024 COMPR EHENS PRIMITIVO METAB OLIC PANEL protein, total 6.9 g/dL 6.1-8. 1 normal Not Available [address] [address] [place], [address], 04/30/2024 11:37:18 04/29/20 24 04/30/2024 COMPR EHENS PRIMITIVO METAB OLIC PANEL albumin 4.5 g/dL 3.6-5. 1 normal Not Available [address] [place], [address], 04/30/2024 11:37:18 04/29/20 24 04/30/2024 COMPR EHENS PRIMITIVO METAB OLIC PANEL globulin 2.4 g/dL_ (calc ) 1.9-3. 7 normal Not Available [address] [address] [place], [address], 04/30/2024 11:37:18 04/29/20 24 04/30/2024 COMPR EHENS PRIMITIVO METAB OLIC PANEL albumin/glob ulin ratio 1.9 (calc ) 1.0-2. 5 normal Not Available [address] [address] [place], [address], 04/30/2024 11:37:18 04/29/20 24 04/30/2024 COMPR EHENS PRIMITIVO METAB OLIC PANEL bilirubin, total 0.6 mg/dL 0.2-1. 2 normal Not Available [address], [address], 04/30/2024 11:37:18 04/29/20 24 04/30/2024 COMPR EHENS PRIMITIVO METAB OLIC PANEL alkaline phosphatase 72 U/L 37-153 normal Not Available [facility] [address] [address] [place], [address], 04/30/2024 11:37:18 04/29/20 24 04/30/2024 COMPR EHENS PRIMITIVO METAB OLIC PANEL AST 25 U/L 10-35 normal Not Available [address] [address] [place], [address], 04/30/2024 11:37:18 04/29/20 24 04/30/2024 COMPR EHENS PRIMITIVO METAB OLIC PANEL ALT 23 U/L 6-29 normal Not Available [address], [address], 04/30/2024 11:37:18 04/29/20 24 04/30/2024 CBC (INCL UDES DIFF/ PLT) white blood cell count 5.3 thous and/u L 3.8-10 .8 normal Not Available [address], [address], 04/30/2024 11:37:19 04/29/20 24 04/30/2024 CBC (INCL UDES DIFF/ PLT) red blood cell count 4.87 kamaljit on/uL 3.80-5 .10 normal Not Available [address], [address], 04/30/2024 11:37:19 04/29/20 24 04/30/2024 CBC (INCL UDES DIFF/ PLT) hemoglobin 13.7 g/dL 11.7-1 5.5 normal Not Available [address], [address], 04/30/2024 11:37:19 04/29/20 24 04/30/2024 CBC (INCL UDES DIFF/ PLT) hematocrit 42.3 % 35.0-4 5.0 normal Not Available [address], [address], 04/30/2024 11:37:19 04/29/20 24 04/30/2024 CBC (INCL UDES DIFF/ PLT) MCV 86.9 fL 80.0-1 00.0 normal Not Available [address], [address], 04/30/2024 11:37:19 04/29/20 24 04/30/2024 CBC (INCL UDES DIFF/ PLT) MCH 28.1 pg 27.0-3 3.0 normal Not Available [address], [address], 04/30/2024 11:37:19 04/29/20 24 04/30/2024 CBC (INCL UDES DIFF/ PLT) MCHC 32.4 g/dL 32.0-3 6.0 normal For adult s, a sligh t decre ase in the calcu lated MCHC value (in the range of 30 to 32 g/dL) is most likel y not clini brett signi fican t; paulaev er, it shoul d be inter prete d with cauti on in corre latio n with other red cell anisa eters and the patie nt's clini chrissie condi tion. Not Available [address], [address], 04/30/2024 11:37:19 04/29/20 24 04/30/2024 CBC (INCL UDES DIFF/ PLT) RDW 13.3 % 11.0-1 5.0 normal Not Available [address], [address], 04/30/2024 11:37:19 04/29/20 24 04/30/2024 CBC (INCL UDES DIFF/ PLT) platelet count 236 thous and/u L 140-40 0 normal Not Available [address], [address], 04/30/2024 11:37:19 04/29/20 24 04/30/2024 CBC (INCL UDES DIFF/ PLT) MPV 12.6 fL 7.5-12 .5 high Not Available [address], [address], 04/30/2024 11:37:19 04/29/20 24 04/30/2024 CBC (INCL UDES DIFF/ PLT) absolute neutrophils 2618 cells /uL 1500-7 800 normal Not Available [facility] [address], [place], [address], 04/30/2024 11:37:19 04/29/20 24 04/30/2024 CBC (INCL UDES DIFF/ PLT) absolute lymphocytes 1860 cells /uL 850-39 00 normal Not Available [facility] [address], [address], 04/30/2024 11:37:19 04/29/20 24 04/30/2024 CBC (INCL UDES DIFF/ PLT) absolute monocytes 429 cells /uL 200-95 0 normal Not Available [facility] [address], [address], 04/30/2024 11:37:19 04/29/20 24 04/30/2024 CBC (INCL UDES DIFF/ PLT) absolute eosinophils 281 cells /uL 15-500 normal Not Available [facility] [address], [address], 04/30/2024 11:37:19 04/29/20 24 04/30/2024 CBC (INCL UDES DIFF/ PLT) absolute basophils 111 cells /uL 0-200 normal Not Available [facility] [address], [address], 04/30/2024 11:37:19 04/29/20 24 04/30/2024 CBC (INCL UDES DIFF/ PLT) neutrophils 49.4 % normal Not Available [facility] [address], [address], 04/30/2024 11:37:19 04/29/20 24 04/30/2024 CBC (INCL UDES DIFF/ PLT) lymphocytes 35.1 % normal Not Available [facility] [address], [address], 04/30/2024 11:37:19 04/29/20 24 04/30/2024 CBC (INCL UDES DIFF/ PLT) monocytes 8.1 % normal Not Available [facility] [address], [place], [address], 04/30/2024 11:37:19 04/29/20 24 04/30/2024 CBC (INCL UDES DIFF/ PLT) eosinophils 5.3 % normal Not Available [facility] [address], [address], 04/30/2024 11:37:19 04/29/20 24 04/30/2024 CBC (INCL UDES DIFF/ PLT) basophils 2.1 % normal Not Available [address], [address], 04/30/2024 11:37:19 04/29/20 24 04/30/2024 T4, FREE T4, free 1.2 NG/dL 0.8-1. 8 normal Not Available [address], [address], 04/30/2024 11:37:20 04/29/20 24 04/30/2024 TSH TSH 0.63 mIU/L 0.40-4 .50 normal Not Available [address], [address], 04/30/2024 11:37:22 04/29/20 24 04/30/2024 VITAM IN D,25- OH,TO DUSTIN,I A vitamin D,25-oh,tota l,ia 61 NG/mL 30-100 normal Vitam in D Statu s 25-OH Vitam in D: Defic iency : <20 ng/mL Insuf ficie ncy: 20 - 29 ng/mL Optim al: > or = 30 ng/mL For 25-OH Vitam in D testi ng on patie nts on D2-brown pplem entat ion and patie nts for whom quant itati on of D2 and D3 fract ions is requi red, the [facility](TM ) 25-OH VIT D, (D2,D 3), LC/MS /MS is recom patricia d: order code 56307 (preston ents >2yrs ). See Note 1 Note 1 For addit ional infor abhinav jacobo e refer to http: //trace Candelaria stDia gnost ics.c om/fa q/FAQ 199 (This link is being provi ded for infor cassidy brooks/ educa marybel lee purpo ses only. ) Not Available [facility] [address] [address] , [place], [address], 04/30/2024 11:37:23 08/08/19 24 08/07/2023 MAMMO , scree franny, bilat eral No observ ation record ed. [address] [place], [address], 08/11/2023 11:40:36 01/27/20 24 01/22/2024 XR, hip + pelvi s, bilat eral, 3 or 4 view No observ ation record ed. [facility] ([facility]) [address] [place], [address], 01/28/2024 10:22:19 01/27/20 24 01/22/2024 XR, lumba r spine , 2 view No observ ation record ed. [facility] ([facility]) [address] [place], [address], 01/28/2024 10:22:19 05/04/20 24 05/04/2024 MRI, hip, w/o contr ast [facility] [place] [address] [place], [place] [id number] [phone] Patien t Name: VERO SOSA Access ion #: [id number] Sex: F : 1954 1 Dictat ed By: Colette goel Attend ing Physic josh: FELIZ CRATY Orderi Physic josh: FELIZ CARTY Exam Date: 2023 13:23 PM Exam Name: MRI HIP RT WO Admitt ing Diagno sis(es ): CLINIC AL INFORM ATION: 68 years old, Female ; pain right hip joint. TECHNI QUE: Multis equenc e multip lanar MRI images of the right hip were obtain ed withou t contra st. COMPAR JOANNE: Radiog raphtex dated 2023. FINDIN GS: BONES: No acute fractu re or osteon ecrosi s. JOINT: Modera te joint space narrow ing in both hips. Mild subcho ndral cystic change of the right superi or acetab ulum. Likely frayin g of the superi or and anteri or superi or labrum of the right hip. No signif icant joint effusi on. BURSAE : Mild edema and small amount of fluid in the trocha nteric bursae bilate rally, slight ly greate r on the left. TENDON S: Mild-t o-mode rate tendin osis of the distal gluteu s medius and minimu s tendon s. Suspec teresa partia l-thic kness inters titial tear near the insert ion of the right gluteu s minimu s tendon . Origin s of the rectus femori s tendon and hamstr ing tendon s are intact . Distal insert ion of the iliops oas tendon is intact . MUSCLE S: Modera te to marked fatty atroph y of the gluteu s minimu s muscle s bilate rally. OTHER: No other signif icant findin gs. IMPRES JOSE: 1. Arthri tic change s in both hips as descri bed above. Page 1 [facility] [address] [address] Patien t Name: VERO SOSA Access ion #: [id number] Sex: F : 1954 1 Dictat ed By: Colette goel Attend ing Physic josh: ANDREW BUTLER Physic josh: FELIZ CARTY Exam Date: 2023 13:23 PM Exam Name: MRI HIP RT WO Admitt ing Diagno sis(es ): 2. Likely frayin g of the superi or and anteri or superi or labrum of the right hip is clinic al suspic ion for labral tear, MR arthro gram could be obtain ed. 3. Mild bilate ral trocha nteric bursit is, left greate r than right. 4. Tendin osis of the distal gluteu s medius and minimu s tendon s with suspec teresa partia l-thic kness inters titial tear in the distal aspect of the right gluteu s minimu s muscle . 5. Fatty atroph y of the gluteu s minimu s muscle s bilate rally. Electr onical ly Signed by: Colette goel at 2023 14:21: 42 PM Page [address] (Imaging) [address] [place], [address], 05/06/2024 19:31:55 05/04/20 24 05/04/2024 imagi ng/shan valentine tic resul t No observ ation record ed. [facility] [address] [place], [address], 05/04/2024 17:31:25 05/04/20 24 05/04/2024 MRI, hip, w/o contr ast [facility] [facility] [address] [place] [address] [phone] Patien t Name: VERO SOSA Access ion #: [id number] Sex: F : 1954 1 Dictat ed By: Colette goel Attend ing Physic josh: FELIZ CARTY Ordertalat cassidy Physic josh: FELIZ CARTY Exam Date: 2023 13:23 PM Exam Name: MRI HIP RT WO Admitt ing Diagno sis(es ): ADDEND UM # 1 Addend um to elmerc t speech recogn ition error in the 2nd impres jose of the report . The 2nd impres jose should read, Likely frayin g of the superi or and anteri or superi or labrum of the right hip. If there is clinic al suspic ion for labral tear, MR rbia mullins could be obtain ed. Electr onical ly Signed by: Colette goel at 2023 14:42: 01 PM ORIGIN AL REPORT CLINIC AL INFORM ATION: 68 years old, Female ; pain right hip joint. TECHNI QUE: Multis equenc e multip lanar MRI images of the right hip were obtain ed withou t contra st. COMPAR JOANNE: Radiog raphs dated 2023. FINDIN GS: BONES: No acute fractu re or osteon ecrosi s. JOINT: Modera te joint space narrow ing in both hips. Mild subcho ndral cystic change of the right superi or acetab ulum. Likely frayin g of the superi or and anteri or superi or labrum of the right hip. No signif icant joint effusi on. BURSAE : Mild edema and small amount of fluid in the trocha nteric bursae bilate rally, slight ly greate r on the left. TENDON S: Mild-t o-mode rate tendin osis of the distal gluteu s medius and minimu s tendon s. Suspec teresa partia l-thic kness inters titial tear near the insert ion of the right gluteu s minimu s tendon . Origin s of the rectus femori s tendon and hamstr ing tendon s are intact . Distal insert ion of the iliops oas tendon is Page 1 [facility] [address] [place] [address] Patien t Name: VERO SOSA Access ion #: [id number] Sex: F : 1954 1 Dictat ed By: Colette goel Attend ing Physic josh: [facility] Physic josh: FELIZ CARTY Exam Date: 2023 13:23 PM Exam Name: MRI HIP RT WO Admitt ing Diagno sis(es ): intact . MUSCLE S: Modera te to marked fatty atroph y of the gluteu s minimu s muscle s bilate rally. OTHER: No other signif icant findin gs. IMPRES JOSE: 1. Arthri tic change s in both hips as descri bed above. 2. Likely frayin g of the superi or and anteri or superi or labrum of the right hip is clinic al suspic ion for labral tear, MR arthro gram could be obtain ed. 3. Mild bilate ral trocha nteric bursit is, left greate r than right. 4. Tendin osis of the distal gluteu s medius and minimu s tendon s with suspec teresa partia l-thic kness inters titial tear in the distal aspect of the right gluteu s minimu s muscle . 5. Fatty atroph y of the gluteu s minimu s muscle s bilate rally. Electr onical ly Signed by: Colette goel at 2023 14:42: 01 PM Page 2 [email or web address] (Imaging) [address] [place], [address], 05/06/2024 19:31:55 05/04/20 24 05/04/2024 imagi ng/di agnos tic resul t No observ ation record ed. [facility] [address] [place], [address], 05/05/2024 02:54:25 05/04/20 24 05/04/2024 MRI, pelvi s, w/o contr ast [facility] [address] [place], [place] [address] [phone] Patien t Name: VERO SOSA Laina Access ion #: [id number] Sex: F : 1954 1 Dictat ed By: Colette goel Attend ing Physic josh: FELIZ CARTY Orderi ng Physic josh: FELIZ CARTY Exam Date: 2023 14:14 PM Exam Name: MRI PELVIS WO Admitt ing Diagno sis(es ): CLINIC AL HISTOR Y: 68 years old, Female ; right groin pain and right buttoc k pain. Severe pain at times. Spasms . TECHNI QUE: Multi sequen ce multi planar MRI images of the pelvis were obtain ed withou t IV contra st. COMPAR JOANNE: Radiog raphs dated 2023 FINDIN GS: No acute fractu re or focal marrow contus ion. Modera te arthri tic change s are seen in both hips. There is mild-t o-mode rate marrow edema adjace nt to the right sacroi liac joint, suspec teresa sacroi liitis with narrow ing and irregu larity of the right sacroi liac joint. Mild T2 hyperi ntense signal within the right sacroi liac joint. Simila r findin gs are seen to a lesser extent adjace nt to the contra latera l left sacroi liac joint. There appear s to be mild wideni ng of the anteri or aspect of the right sacroi liac joint, may be due to erosiv e change s. Marked fatty atroph y of the gluteu s minimu s muscle s bilate rally. Visual ized muscul ature of the pelvis is otherw ise unrema rkable . Intrap elvic anatom y appear s unrema rkable . Partia lly visual ized degene rative disc diseas e in the lower lumbar spine with disc bulges at L4-L5 and L5-S1. Likely modera te bilate ral neural forami nal stenos es at L5-S1 and modera te to severe bilate ral neural forami nal stenos es at L4-L5. Likely modera te spinal canal stenos is at L4-L5. IMPRES JOSE: 1. Findin gs consis tent with bilate ral sacroi liitis , right greate r than left. Possib le erosiv e change s are seen in the right sacroi liac joint. Inflam matory arthro maggie not exclud ed. 2. Arthri tic change s in both hips as descri bed above. 3. Partia lly visual ized degene rative disc diseas e in the lower lumbar spine. Page 1 [facility] [address] [facility] [place] [address] [phone] Patien t Name: VERO SOSA Access ion #: [id number] Sex: F : 1954 1 Dictat ed By: Colette goel Attend ing Physic josh: ANDREW BUTLER Ordertalat ng Physic josh: JOCELINE CARTYTLEANDRA Ramos Exam Date: 2023 14:14 PM Exam Name: MRI PELVIS WO Admitt ing Diagno sis(es ): Electr onical ly Signed by: Colette goel at 2023 14:54: 30 PM Page [address] [facility] ([facility] [address] [place], [address], 05/06/2024 19:31:56 05/04/20 24 05/04/2024 imagi ng/di agnos tic resul t No observ ation record ed. [facility] [address] [place], [address], 05/04/2024 17:58:55 Result Notes None recorded. Problems Name Problem SNOMED Code Status Onset Date Resolution Date Notes Provider Name and Address Organization Details Recorded Time Renewal of prescripti on Active 2021 Not Available [facility] 3 02:39:35 Cat bite - wound 406714489 Active 2021 Not Available [facility] 3 02:39:35 Hypothyroi dism 28479590 Active 2021 Sridevi Bautista APRN [address] [address], [place], [address] , [employer] [facility] [employer] 4 13:01:02 Alopecia 18320366 Active 2018 Sridevi Bautista APRN [address] [address], [place], [address] , [facility] 4 13:00:52 Muscle strain 95644996 Active 2022 TEETEE Neil [address], [place], [address] , [facility] 3 14:45:36 Low back pain 074677501 Active 2022 Sridevi Bautista APRN [address], [address], [place], [address] , [facility] 4 13:01:04 Acute urinary tract infection 854785948 Active 2022 Reva deutsch, [facility] 3 15:54:50 Prediabete s 092576748 Active 2022 Sridevi Bautista APRN [address], [address], [place], [address] , [facility] 4 13:01:12 Hyperlipid emia 49275275 Active 2022 Sridevi Bautista APRN [address], [address], [place], [address] , [facility] 4 13:01:00 Osteopenia 186213494 Active 2022 Sridevi Bautista APRN [address], [address], [place], [address] , [facility] 4 13:01:09 Chronic kidney disease 492285417 Active 2022 Sridevi Bautista APRN [address], [address], [place], [address] , [facility] 4 13:00:57 Atypical chest pain 764315280 Active 2022 Sridevi Bautista APRN [address], [address], [place], [address] , [facility] 4 13:00:54 Major depressive disorder 285166238 Active 2022 Sridevi Bautista APRN [address], [address], [place], [address] , [place] [facility] [place] [facility] 4 13:01:07 Essential hypertensi on 43115695 Active 2022 Sridevi Bautista APRN [address], [address], [place], [address] , [facility] [place] [facility] 4 13:00:59 Allergic rhinitis 67516438 Active 2022 LENA Neil-C [address], [address], [place], [address] , [place] [facility] [place] [facility] 3 19:29:21 Alopecia areata 45860571 Active 2022 LENA Neil-C [address], [address], [place], [address] , [facility] [place] [facility] 3 19:29:27 Serum creatinine above reference range 479684545 Active 2022 LENA Neil-C [address], [address], [place], [address] , [facility] [place] [facility] 3 11:54:52 Vitamin D deficiency 96676015 Active 2023 Sridevi Bautista APRN [address], [address], [place], [address] , [facility] [place] [facility] 4 13:02:01 Bilateral hip joint pain 9859654338702 9100 Active 2023 Sridevi Bautista APRN [address], [address], [place], [address] , [place] [facility] [place] [facility] 4 11:38:31 Sleep apnea 03807832 Active 2023 Sridevi Bautista APRN [address], [address], [place], [address] , [place] [facility] [place] [facility] 4 10:14:22 Pain in right hip joint 4641083960084 02 Active 2023 Sridevi Bautista APRN [address], [address], [place], [address] , [facility] 4 10:15:36 Osteoarthr osis of the carpometac arpal joint of the thumb 19841334 Active 2023 Omar Aragon MD [address], [address], [place], [address] , [facility] 4 15:34:07 Osteoarthr itis of hip 228471344 Active 2023 Omar Aragon MD [address], [address], [place], [address] , [facility] 4 11:02:40 Spasm 17147809 Active 2023 Sridevi Bautista APRN [address], [address], [place], [address] , [facility] 4 13:43:16 Moderate recurrent major depression 66115441 Active 2023 Gus ramos MD [address], [address], [place], [address] , [facility] 4 11:15:33 Environmen dustin allergy 799965457 Active 2023 Gus ramos MD [address], [address], [place], [address] , [facility] 4 11:21:46 Problem Notes None recorded. Procedures Surgical History Date Name Laterality Status Provider Name and Address Organization Details Recorded Time 03/30/20 24 Medicare Wellness CPT Code, subsequent completed Sridevi Bautista APRN [address], [place], [address], [facility] 03/26/2024 12:38:53 04/12/20 21 Most Recent Bone Density completed Not Available [facility] 07/24/2022 02:34:20 07/25/19 18 Cataract Surgery completed Not Available [facility] 07/24/2022 02:34:23 06/26/19 18 Cataract Surgery completed Not Available [facility] 07/24/2022 02:34:23 12/25/19 10 Date of Last Colonoscopy completed Not Available [facility] 07/24/2022 02:34:20 Arthroscopy completed Marjan Kaminski CNA [facility] 02/18/2024 10:12:46 ligation of bilateral fallopian tubes completed Marjan Kaminski CNA [facility] 02/18/2024 10:12:39 Colonoscopy completed Riya Jorge MA [facility] 01/29/2024 10:02:17 Imaging Results Imaging Date Name Status LastModified by Organiz ation Details LastModified Time 08/07/2023 MAMMO, screening, bilateral completed [address] [place], [address], 08/11/2023 11:40:36 01/22/2024 XR, hip + pelvis, bilateral, 3 or 4 view completed [facility] ([facility]) [address] [place], [address], 01/28/2024 10:22:19 01/22/2024 XR, lumbar spine, 2 view completed [facility] ([facility] Sched[facility]) [address] [place], [address], 01/28/2024 10:22:19 05/04/2024 MRI, hip, w/o contrast completed [address] (Imaging) [address] [place], [address], 05/06/2024 19:31:55 05/04/2024 imaging/diagno stic result active [facility] [address] [place], [address], 05/04/2024 17:31:25 05/04/2024 MRI, hip, w/o contrast completed [address] (Imaging) [address] [place], [address], 05/06/2024 19:31:55 05/04/2024 imaging/diagno stic result active [facility] [address] [place], [address], 05/05/2024 02:54:25 05/04/2024 MRI, pelvis, w/o contrast completed amanda [facility] (Imaging) [address] [place], [address], 05/06/2024 19:31:56 05/04/2024 imaging/diagno stic result active [facility] [address] [place], [address], 05/04/2024 17:58:55 Procedure Notes None recorded. Medical Equipment None Reported. Allergies Allergen ID Allergen Name Allergen Category Reaction Reaction Severity Criticality Documentation Date Start Date Code Code System Note Provider Name and Address Organization Details Recorded Time 3554 Naprosyn medicatio n nausea Not available Not available 07/24/2022 2 RxNorm indig estio n MIKE Elliott, [place] [facility] [place] [employer] 4 10:10:51 3555 animal dander environme nt Not available Not available Not available 07/24/2022 07504 UNK Not Available [facility] 3 02:46:25 Medications Name Sig Start Date Stop Date Status Note LastModified by Organization Details LastModified Time cyclobenz aprine 10 mg tablet Take 1 tablet 3 times a day by oral route as needed. active Not Available Not Available No t Available atorvasta tin 20 mg tablet TAKE 1 TABLET BY MOUTH DAILY IN THE EVENING active Not Available Not Available No t Available tizanidin e 2 mg tablet TAKE 1 TABLET BY MOUTH EVERY 12 HOURS NEEDED FOR GROIN SPASM active Not Available Not Available No t Available meloxicam 15 mg tablet TAKE 1 TABLET BY MOUTH EVERY DAY 03/30 completed Not Available Not Available Not Available venlafaxi ne 25 mg tablet QD 01/19 completed Not Available Not Available Not Available prednison e 20 mg tablet TAKE 2 TABLETS BY MOUTH ONCE DAILY IN THE MORNING FOR 5 DAYS active Not Available Not Available No t Available venlafaxi ne ER 150 mg capsule,e xtended release 24 hr TAKE 1 CAPSULE BY MOUTH EVERY DAY active Not Available Not Available No t Available Zyrtec 10 mg tablet Take 1 tablet every day by oral route. OTC 2018 active Not Available Not Available Not Avai lable allopurin ol 100 mg tablet TAKE 1 TABLET BY MOUTH ONCE DAILY 07/05 completed Not Available Not Available Not Available tramadol 50 mg tablet TAKE 1 TABLET BY MOUTH EVERY 8 HOURS NEEDED FOR PAIN 12/25 completed Not Available Not Available Not Available triamcino lone acetonide 0.1 % topical cream APPLY A THIN LAYER TO THE AFFECTED AREA(S) TOPICALL Y TWICE DAILY NEEDED active Not Available Not Available No t Available potassium 99 mg tablet Take 1 tablet twice a day by oral route as needed. 07/03 completed Not Available Not Available Not Available methocarb alfred 750 mg tablet TAKE 1 TABLET BY MOUTH THREE TIMES DAILY NEEDED 07/28 completed Not Available Not Available Not Available Kenalog 10 mg/mL suspensio n for injection In office injectio n administ ered by the provider 01/02 completed NDC: 0003-049 4-20 Not Available Not Available Not Available venlafaxi ne 37.5 mg tablet TAKE 3 TABLETS BY MOUTH DAILY 01/28 completed Not Available Not Available Not Available levothyro xine 125 mcg tablet TAKE 1 TABLET BY MOUTH EVERY DAY IN THE MORNING active Not Available Not Available No t Available lisinopri l 20 mg-hydroc hlorothia zide 25 mg tablet TAKE 1 TABLET EVERY DAY 01/02 completed stopped by cardio Not Available Not Available Not Available monteluka st 10 mg tablet TAKE 1 TABLET BY MOUTH DAILY active Not Available Not Available No t Available hydroxyzi ne HCl 25 mg tablet TAKE 1 TABLET BY MOUTH THREE TIMES DAILY NEEDED active Not Available Not Available No t Available ergocalci ferol (vitamin D2) 1,250 mcg (50,000 unit) capsule TAKE 1 CAPSULE BY MOUTH 1 TIME EVERY WEEK active Not Available Not Available No t Available methylpre dnisolone 4 mg tablets in a dose pack FOLLOW PACKAGE DIRECTIO NS 01/21 completed Not Available Not Available Not Available losartan 100 mg tablet TAKE 1 TABLET BY MOUTH DAILY active Not Available Not Available No t Available calcitrio l 0.25 mcg capsule TAKE 1 CAPSULE BY MOUTH ONCE DAILY 07/05 completed one capsule QOD Not Available Not Available Not Available levothyro xine 112 mcg tablet TAKE 1 TABLET DAILY active Not Available Not Available No t Available amoxicill in 875 mg-potass ium clavulana te 125 mg tablet Take 1 tablet every 12 hours by oral route for 7 days. active Not Available Not Available No t Available nitrofura ntoin monohydra te/macroc rystals 100 mg capsule TAKE 1 CAPSULE BY MOUTH EVERY 12 HOURS FOR 5 DAYS 01/21 completed Not Available Not Available Not Available cod liver oil 01/02 completed Not Available Not Available Not Available Co Q-10 01/28 completed Not Available Not Available Not Available vitamin B complex take 1 daily by mouth 2018 active Not Available Not Available Not Avai lable Fish Oil 12/25 completed Not Available Not Available Not Available Metamucil PRN 07/28 completed Not Available Not Available Not Available Miralax 03/30 completed Not Available Not Available Not Available Gobler 3 TK 1T PO QD 03/30 completed Not Available Not Available Not Available lidocaine (PF) 10 mg/mL (1 %) injection solution In office injectio n administ ered by the provider 01/02 completed [facility][NOTE 3]: [id number] 6-17 Not Available Not Available Not Available hydrochlo rothiazid e 12.5 mg tablet TAKE 1 TABLET BY MOUTH ONCE DAILY 09/06 completed Not Available Not Available Not Available GaviLyte- G 236 gram-22.7 4 gram-6.74 gram-5.86 gram oral solution USE DIRECTED active Not Available Not Available No t Available Prevnar 13 (PF) 0.5 mL intramusc ular syringe PHARMACI ST ADMINIST ERED IMMUNIZA TION ADMINIST ERED AT TIME OF DISPENSI NG 05/05 completed Not Available Not Available Not Available Ozempic 0.25 mg or 0.5 mg (2 mg/1.5 mL) subcutane ous pen injector INJECT 0.25 MG SUBCUTAN EOUSLY ONCE WEEKLY FOR 4 WEEKS THEN INCREASE TO 0.5 MG WEEKLY 07/23 completed Not Available Not Available Not Available Fluzone High-Dose 2019-20 (PF) 180 mcg/0.5 mL intramusc ular syringe PHARMACI ST ADMINIST ERED IMMUNIZA TION ADMINIST ERED AT TIME OF DISPENSI NG 05/05 completed Not Available Not Available Not Available aspirin 81 mg capsule Take 1 capsule every day by oral route as needed. 03/30 completed Not Available Not Available Not Available Vitals Date Recorded Body height Body mass index (BMI) Body weight Oxygen saturation Oxygen saturation in Arterial blood by Pulse oximetry Heart rate Systolic blood pressure Diastolic blood pressure Provider Name and Address Organization Details Last Updated DateTime 4 170.18 cm 34.5 kg/m2 41032.3 2 g 98 % 98 % 78 /min 128 mm[Hg] 78 mm[Hg] Sinai Toribio CMA [employer] 4 11:12:18 Date Recorded Body height Body mass index (BMI) Body weight Body temperature Heart rate Oxygen saturation Oxygen saturation in Arterial blood by Pulse oximetry Pain severity - 0-10 verbal numeric rating [Score] - Reported Systolic blood pressure Diastolic blood pressure Provider Name and Address Organization Details Last Updated DateTime 4 170.18 cm 34.6 kg/m2 556965. 91 g 96.2 [degF] 87 /min 94 % 94 % 9 114 mm[Hg] 72 mm[Hg] Riya Jorge MA [employer] [facility] [employer] 4 09:59:28 Date Recorded Body height Body mass index (BMI) Body weight Provider Name and Address Organization Details Last Updated DateTime 02/18/2024 170.18 cm 34.5 kg/m2 68033.32 g Marjan Kaminski CNA [place] [employer] [facility] [employer] 02/18/2024 10:10:06 Date Recorded Body height Body mass index (BMI) Body weight Body temperature Heart rate Oxygen saturation Oxygen saturation in Arterial blood by Pulse oximetry Pain severity - 0-10 verbal numeric rating [Score] - Reported Systolic blood pressure Diastolic blood pressure Provider Name and Address Organization Details Last Updated DateTime 4 170.18 cm 34.3 kg/m2 42851.7 3 g 98.2 [degF] 85 /min 96 % 96 % 1 120 mm[Hg] 68 mm[Hg] Riya Jorge MA [facility] [employer] [facility] 4 10:52:27 Date Recorded Body height Body mass index (BMI) Body weight Body temperature Heart rate Systolic blood pressure Diastolic blood pressure Provider Name and Address Organization Details Last Updated DateTime 4 170.18 cm 34 kg/m2 84767.5 4 g 97.3 [degF] 84 /min 120 mm[Hg] 80 mm[Hg] MARY Caceres [place] [facility] [employer] [facility] 4 10:18:48 Social History Question Answer Notes LastModified by Organization Details LastModified Time Tobacco Smoking Status Never Smoker Not Available [employer] 07/24/2022 02:30:44 Do You Have An Advance Directive? No [email or web address] [id number] Information not available 07/24/2022 What Is Your Level Of Alcohol Consumption? Occasional MIGRATION.030 [id number] Information not available 07/24/2022 Are You Blind Or Do You Have Difficulty Seeing? No MIGRATION.030 [id number] Information not available 07/24/2022 What Is Your Level Of Caffeine Consumption? Moderate MIGRATION.030 [id number] Information not available 07/24/2022 In The 14 Days Before Symptom Onset, Have You Had Close Contact With A Laboratory-confi rmed COVID-19 While That Case Was Ill? No Had Covid Last Week February 2024 [email or web address] Information not available 03/30/2024 In The 14 Days Before Symptom Onset, Have You Had Close Contact With A Person Who Is Under Investigation For COVID-19 While That Person Was Ill? No MIGRATION.030 [id number] Information not available 07/24/2022 Are You Currently Employed? Yes Information not available 04/28/2024 Are You Deaf Or Do You Have Serious Difficulty Hearing? No MIGRATION.030 [id number] Information not available 07/24/2022 What Type Of Diet Are You Following? DIABETIC MIGRATION.030 [id number] Information not available 07/24/2022 What Is The Highest Grade Or Level Of School You Have Completed Or The Highest Degree You Have Received? 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 No MIGRATION.0301 [id number] Information not available 07/24/2022 What Is The Fluoride Status Of Your Home? Unknown MIGRATION.0301 [id number] Information not available 07/24/2022 Are There Any Guns Present In Your Home? No MIGRATION.0301 [id number] Information not available 07/24/2022 Do You Use Insect Repellent Routinely? No MIGRATION.0301 [id number] Information not available 07/24/2022 Where Do You Live? [place]House MIGRATION.0301 [id number] Information not available 07/24/2022 Are You Following A Low Salt Diet? Yes MIGRATION.0301 [id number] Information not available 07/24/2022 Do You Have A Medical Power Of Welding Pantograph Operator? No MIGRATION.0301 [id number] Information not available 07/24/2022 What Was The Date Of Your Most Recent Tobacco Screening? 04/28/2024 Information not available 04/28/2024 How Many Children Do You Have? 3 [email or web address] Information not available 01/29/2024 Have You Ever Been Counseled For Unhealthy Alcohol Use? No MIGRATION.0301 [id number] Information not available 07/24/2022 Do You Have Any Pets? Yes MIGRATION.0301 [id number] Information not available 07/24/2022 What Is Your Relationship Status? MIGRATION.0301 [id number] Information not available 07/24/2022 Do You Use Your Seat Belt Or Car Seat Routinely? Yes MIGRATION.0301 [id number] Information not available 07/24/2022 Do You Have Smoke And Carbon Monoxide Detectors In Your Home? Yes MIGRATION.0301 [id number] Information not available 07/24/2022 Are You Passively Exposed To Smoke? No MIGRATION.0301 [id number] Information not available 07/24/2022 Are There Any Smokers In Your House? No MIGRATION.0301 [id number] Information not available 07/24/2022 What Types Of Sporting Activities Do You Participate In? None MIGRATION.0301 [id number] Information not available 07/24/2022 Do You Feel Stressed (tense, Restless, Nervous, Or Anxious, Or Unable To Sleep At Night)? [id number] MIGRATION.0301 [id number] Information not available 07/24/2022 Do You Use Any Illicit Or Recreational Drugs? No MIGRATION.[id number] [id number] Information not available 07/24/2022 Do You Use Sunscreen Routinely? No MIGRATION.0301 [id number] Information not available 07/24/2022 Has Tobacco Cessation Counseling Been Provided? No Not Needed-ne christiane Smoked MIGRATION.0301 [id number] Information not available 07/24/2022 Have You Recently Traveled Abroad? No MIGRATION.0301 [id number] Information not available 07/24/2022 Do You Have Any Dietary Restrictions? Yes MIGRATION.0301 [id number] Information not available 07/24/2022 Do You Or Have You Ever Used Any Other Forms Of Tobacco Or Nicotine? No MIGRATION.0301 [id number] Information not available 07/24/2022 Sex: Female Functional Status Question Answer Note LastModified by Organizat ion Details LastModified Time Do you have difficulty walking or climbing stairs? No [id number].[id number] Information not available 07/24/2022 Do you have transportation difficulties? No MIGRATION.370691 [id number] Information not available 07/24/2022 Are you able to walk? YESWOREST MIGRATION.[id number] Information not available 07/24/2022 Do you have difficulty doing errands alone? No MIGRATION.796271 7381 Information not available 07/24/2022 Are you able to care for yourself? Yes MIGRATION.489105 4597 Information not available 07/24/2022 Do you have difficulty dressing or bathing? No MIGRATION.928282 8572 Information not available 07/24/2022 What is your exercise level? Occasional stays active around home MIGRATION.364315 3514 Information not available 07/24/2022 Mental Status Question Answer Note LastModified by Organizat ion Details LastModified Time Do you have difficulty concentrating, remembering or making decisions? No MIGRATION.[id number] 6 Information not available 07/24/2022 Family History Relationship Description Onset Age of this Age Resolved Age Notes LastModified by Organization Details LastModified Time Mother Malignant tumor of breast Not available 09/2023 11:03:20 Mother Osteoporosis [email or web address] Not av ailable 07/29/2023 11:03:20 Mother Depressive disorder [id number] Not available 07/24/2022 02:34:24 Maternal Grandmother Malignant tumor of breast [email or web address] Not available 09/2023 11:03:20 Maternal Grandmother Gout [email or web address] Not available 11:03:20 Maternal Grandmother Rheumatoid arthritis [email or web address] Not available 09/2023 11:03:20 Maternal Grandmother Heart disease [email or web address] Not available 2023 10:12:02 Maternal Grandmother Myocardial infarction MIGRATION.[id number] [id number] Not available 07/24/2022 02:34:24 Maternal Grandmother Diabetes mellitus MIGRATION.575 [id number] Not available 07/24/2022 02:34:24 Father Myocardial infarction MIGRATION.774 [id number] Not available 07/24/2022 02:34:24 Sister Atrial fibrillation [email or web address] Not available 0 07/29/2023 11:03:20 Father Heart disease [email or web address] Not available 2023 10:12:02 Paternal Grandfather Family history of stroke [email or web address] Not available 2023 10:12:15 Medical History Condition Response NERVE DISEASE N BLINDNESS N RHEUMATIC FEVER N KIDNEY STONES N BLADDER PROBLEMS N MRSA N OTHER # 1 Y POLIO N LUNG DISEASE/DISORDER N HISTORY OF DRUG ABUSE N COPD N RADIATION / CHEMOTHERAPY N Other # 2 N BLOOD DISEASES N EAR OR HEARING PROBLEMS N MUMPS N SHINGLES N DEPRESSION (INCLUDING POST ) Y BOWEL PROBLEMS N STROKE/TIA N ULCERS N BENIGN PROSTATIC HYPERPLASIA N MEASLES N HYPOTENSION N MYOCARDIAL INFARCTION N OBESITY N GERD/NAUSEA N ANEURYSM N URINARY/BLADDER/KIDNEY PROBLEMS N CORONARY ARTERY DISEASE (CAD) N ADDICTION CONCERNS N Impotence N ENDOMETRIOSIS N USE OF BLOOD THINNERS N SKIN PROBLEMS Y GASTROINTESTINAL DISORDER N PERIPHERAL VASCULAR DISEASE N MUSCLE,JOINT OR BONE PROBLEMS N GASTROINTESTINAL BLEEDING N BLOOD CLOTS N ASTHMA N CATARACTS Y ERECTILE DYSFUNCTION N VARICOSITIES N GI PROBLEMS N Low Testosterone N INFERTILITY N AIDS/HIV N CHEMOTHERAPY / RADIATION N LIVER DISEASE N MALE HYPOGONADISM N HYPERTENSION Y Deficiency Y TOURETTE'S N ANXIETY DISORDER N BLOOD TRANSFUSION N ANEMIA/BLOOD DISORDER N CHRONIC EAR INFECTIONS N BRONCHITIS N TUBERCULOSIS N GLAUCOMA N FOOT PROBLEM N DIVERTICULITIS N SLEEP APNEA N CHICKENPOX N INFECTIOUS DISEASE N PROSTATE N HEART ARRHYTHMIA N INSOMNIA N HIGH CHOLESTEROL / HYPERLIPIDEMIA Y EYE PROBLEMS N HYPERTHYROIDISM N EDEMA N CHRONIC PAIN SYNDROME N HYPOTHYROIDISM Y CAROTID BLOCKAGE N CONSTIPATION N BACK / NECK PROBLEMS Y ATHEROSCLEROSIS N BREAST PROBLEMS N DIALYSIS N ECZEMA N OSTEOPOROSIS N ARTHRITIS N APPENDICITIS N DIABETES, TYPE N BAD TEETH N ENT N HEARTBURN / REFLUX N AUTISM SPECTRUM DISORDER (ASD) N HEPATITIS / LIVER DISEASE N GOUT N SLEEP DISORDER N ALZHEIMER'S DISEASE N Brain Problems N DEMENTIA N HERPES N SEIZURES/EPILEPSY N HEADACHES/MIGRAINES N VASCULAR DISEASE N PACEMAKER N Blood Disorder N DIZZINESS N HEART DISEASE/HEART PROBLEMS N KIDNEY DISEASE Y MULTIPLE SCLEROSIS N CANCER: SPECIFY N CARDIAC ARRHYTHMIA N ATRIAL FIBRILLATION N Gall Stones N PULMONARY EMBOLISM N AUTOIMMUNE DISEASE Y Gynecological History Statement/Question Response How many live births 3 Date of Last Mammogram 04/12/2021 Date of Last Colonoscopy 12/24/2009 Date of LMP Most Recent Bone Density 04/12/2021 Sexually Active? N Menses Monthly N Date of Last Pap 05/26/2017 Current Control Method Tubal Ligat ion Obstetrics History GPAL:G 3 P 3 0 0 3 Type Value Multiple Births 0 Full Term 3 Induced 0 Spontaneous 0 Premature 0 Living 3 Ectopics 0 Total 3 Immunizations Vaccine Type Date Status Note Provider Nam e and Address Organization Details Recorded Time COVID-19, mRNA, LNP-S, PF, 30 mcg/0.3 mL dose 1 completed Not Available [facility] 07/24/2022 02:46:14 COVID-19, mRNA, LNP-S, PF, 30 mcg/0.3 mL dose 1 completed Sridevi Bautista APRN [address], [address], [place], [address], [employer] [facility] [employer] 11/17/2023 13:03:00 pneumococcal polysaccharide PPV23 1 completed Sridevi Bautista APRN [address], [address], [place], [address], [employer] [facility] [employer] [facility] 11/17/2023 13:03:00 Influenza, split virus, quadrivalent, preservative 0 completed Not Available [facility] 07/24/2022 02:46:15 Influenza, split virus, quadrivalent, preservative 9 completed Sridevi Bautista APRN [address], [address], [place], [address], [facility] [employer] [facility] 11/17/2023 13:03:00 Pneumococcal conjugate PCV 13 9 completed SHANNAN [address], [address], [place], [address], [facility] [employer] [facility] 11/17/2023 13:03:00 Tdap 9 completed Not Available [facility] 07/24/2022 02:46:15 Influenza, split virus, quadrivalent, preservative 8 completed Not Available [facility] 07/24/2022 02:46:15 influenza, unspecified formulation 3 completed SHANNAN [address], [address], [place], [address], [facility] [employer] [facility] 11/17/2023 13:03:11 Influenza, high-dose, quadrivalent, PF 2 completed [address]N [address], [address], [place], [address], [facility] [employer] [facility] 11/17/2023 13:03:00 COVID-19, mRNA, LNP-S, PF, 30 mcg/0.3 mL dose 1 completed SHANNAN [address], [address], [place], [address], [facility] [employer] [facility] 11/17/2023 13:03:00 COVID-19, mRNA, LNP-S, PF, 30 mcg/0.3 mL dose 1 completed SHANNAN [address], [address], [place], [address], [facility] [employer] [facility] 11/17/2023 13:03:00 Pneumococcal conjugate PCV 13 9 completed [address]ANNAN [address], [address], [place], [address], [facility] [employer] [facility] 11/17/2023 13:03:00 Influenza, high-dose, trivalent, PF 9 completed [address]N [address], [address], [place], [address], [place] [facility] 11/17/2023 13:03:00 Influenza, high-dose, quadrivalent, PF 3 completed Sridevi Bautista, SHANNAN [address], [address], [place], [address], [place] [facility] 11/17/2023 13:03:11 Influenza, split virus, trivalent, PF 4 completed Sridevi Bautista APRN [address], [address], [place], [address], [place] [facility] 03/30/2024 10:58:41 Past Encounters Encounter ID Performer Location Encounter Start Date Encounter Closed Date Diagnosis/Indication Diagnosis SNOMED-CT Code Diagnosis ICD10 Code Diagnosis Note [id number] [facility] [place] [address] [place] [address] 08/23/2020 00:00:00 08/23/2020 15:42:56 [id number] [facility] [address] [address] 01/02/2021 00:00:00 01/02/2021 13:59:58 [id number] [facility] [address] [address] 07/05/2021 00:00:00 07/05/2021 20:13:12 [id number] [facility] [address] [address] 09/06/2021 00:00:00 09/06/2021 11:05:23 [id number] [facility] [address] [address] 12/25/2021 00:00:00 12/25/2021 13:31:54 [id number] [facility] [address] [place] [address] [address] [address] 07/23/2022 00:00:00 07/23/2022 12:09:25 [id number] TEETEE Neil [facility] Internal Med Marcelo chavez [address] [facility] y [address] [facility] [place] [address] 12/11/2022 14:09:06 12/11/2022 14:45:41 Muscle strain 08337248 T14.8XXA Start Medrol Dosepak and methocarba mol-she is aware of side effects, risks, and benefits No alcohol, driving, or mixing with other sedating meds Can continue heat and ice p.r.n. Gentle range of motion exercises If no improvemen t after meds, call office and we can get her into PT [id number] TEETEE Neil [facility] Internal Med [facility] [address] [address] 01/21/2023 10:38:34 01/21/2023 11:45:36 Hypothyroidism 97979336 E03.9 on levothyrox ine Hyperlipidemia 76067436 E78.5 on atorvastat in Atypical chest pain 1025 90259 R07.89 following cardiology - Dr. Koch/naveen stress test Prediabetes 250849686 R7 3.03 working on diet/exerc ise Major depr essive disorder 984272506 F32.9 on effexor, she is aware of side effects, risks, benefitsca ll office if any change in mood or behaviorsh e declines psychiatry referral Essential hypertension 24661919 I10 on losartan Osteopenia 822886531 M85 .80 on OTC calcium, nephrology is managing vitamin dlast bone density 2018 Allergic rhinitis 307363 04 J30.9 on zyrtec, singulair Alopecia areata 43870661 L63.9 follows derm annually- has referral from previous visit Serum crea tinine above reference range 352091398 R79.[address] Clark- he feels she no longer meets CKD criteria and no longer needs to follow him [id number] Sridevi Bautista APRN [facility] Internal Med [facility] [address] [address] 07/29/2023 11:01:45 07/29/2023 11:49:07 Chronic kidney disease 987633576 N18.9 Essential hypertension 52580170 I10 Hyperlipidemia 84085650 E78.5 Hypothyroidism 08625496 E03.9 Major depr essive disorder 689983299 F32.9 Renewal of prescription 251292051 Z76.0 Vitamin D deficiency 347 62904 E55.9 Screening mammography 24 789813 Z12.31 [id number] Sridevi Bautista APRN [facility] Internal Med [facility] [address] [address] 01/29/2024 09:48:37 01/29/2024 10:26:36 Sleep apnea 71801540 G47.30 Pain in ri ght hip joint 8350848243 00761 M25.303 [id number] Omar Aragon MD [facility] [place] [address] [place] [address] 02/18/2024 09:52:32 02/18/2024 10:39:23 Bilateral hip joint pain [id number] 1701493 M25.551 M25.552 Osteoarthr osis of the carpometacarpal joint of the thumb 06154166 M18.9 [id number] Sridevi Bautista APRN [facility] Internal Med [facility] [address] [address] 03/30/2024 10:38:22 03/30/2024 11:25:35 Adult health examination 375789862 Z00.00 Screening for disorder 877379555 Z13.9 Hepatitis C screening 41 9217749 Z11.59 Prediabetes 356659441 R7 3.03 [id number] Gus ramos MD [facility] Primary Care [facility] [address] [facility] [address] [place] [address] 04/28/2024 09:55:27 04/28/2024 10:45:34 Screening - NAD 037319819 Z13.9 C-scope: Dr Cevallos 01/13/2023 , next in 5 years Mammogram: 08/07/2023 : Neg DEXA: 04/12/2021 : Osteopenia Get yearly flu shot, get Tdap if not doneGet Shingrix vaccineGet COVID 19 boostersGe t PCV if not done RTC in 3 months, do labs, ER if worse, she is very appreciati ve to this plan of care45 minutes spent with the patient, exam done, lab order provided, MRI order provided Hyperlipidemia 39863085 E78.5 On atorvastat in 20mg dailyGet labs Essential hypertension 88612020 I10 On losartan 100mg daily Moderate r ecurrent major depression 00830484 F33.1 On venlafaxin e ER 150mg daily, not suicidal or homicidalD eclines any psychiatry referrals Hypothyroidism 85272277 E03.9 On levothyrox ine 125mcgs dailyGet labs and US thyroid Chronic ki dney disease 008748382 N18.9 GFR 56 01/22/2024 , refer to nephrology Did see Dr Clark in the past Environmental allergy 42 9487076 T78.49XA On singulairO n zyrtec Vitamin D deficiency 347 48559 E55.9 Pain in ri ght hip joint 8902668075 [address] Aragon, now in PTOn tizanidine Still has TTP and spasms, will get MRI hip and pelvis Addendum: 05/14/2024 :MRI noted and case sent Gynecologi c examination 51788672 Z01.419 Health Concerns Section Related Observation LastModified by Organization Detai ls LastModified Time None Recorded Concern Status LastModified by Organization Details LastModified Time None Recorded Advance Directives Directive N: Payers Encounter Date Sequence Insurance Name Policy Number Policy Herman Covered Member ID Herman Member ID Guarantor Name 07/29/2023 1 [place] Zenia Torres [id number] Zenia Torres 07/29/2023 2 [facility] [facility] (MEDICARE SUPPLEMENT) Zenia Torres [id number] Zenia Torres 01/29/2024 1 [place] Zenia Torres [id number] Zenia Torres 01/29/2024 2 [facility] [facility] (MEDICARE SUPPLEMENT) Zenia Torres [id number] Zenia Torres 02/18/2024 1 [place] Torres [id number] Zenia Melissa 02/18/2024 2 [facility] [facility] (MEDICARE SUPPLEMENT) Zenia Torres [id number] Zenia Torres 03/30/2024 1 [place] Zenia Torres [id number] Zenia Torres 03/30/2024 2 [facility] [facility] (MEDICARE SUPPLEMENT) Zenia Torres [id number] Zenia Torres 04/28/2024 1 [place] Z[place] Torres [id number] Zenia Torres 04/28/2024 2 [facility] [facility] (MEDICARE SUPPLEMENT) Zenia Torres [id number] Zenia Torres Notes Date Note Type Note Provider Name and Address Organization Details Recorded Time 07/29/2023 text/html Zenia presents to office today to establish care and yearly labs. She states that she has not had any issues or concerns since visit with previous provider. She states that she follows with dermatology to protect skin. Sridevi Bautista APRN [address], [place], [address], [employer] 07/29/2023 11:46:05 01/29/2024 text/html Zenia presents today for 6 month follow up. She states that her left thumb, elbow have been painful for a couple of months. She states that she is not sure what she has done to it. She states that her hip pain continues. She states that she gets painful zaps to te groin area. 07/29/2023Zenia presents to office today to establish care and yearly labs. She states that she has not had any issues or concerns since visit with previous provider. She states that she follows with dermatology to protect skin. Sridevi Bautista APRN [address], [address], [place], [address], [employer] 01/29/2024 10:22:12 03/30/2024 text/html Zenia presents today for Medicare Annual Wellness visit. She states that she had Covid 2 weeks ago. 01/29/2024Zenia presents today for 6 month follow up. She states that her left thumb, elbow have been painful for a couple of months. She states that she is not sure what she has done to it. She states that her hip pain continues. She states that she gets painful zaps to te groin area. 07/29/2023Zenia presents to office today to establish care and yearly labs. She states that she has not had any issues or concerns since visit with previous provider. She states that she follows with dermatology to protect skin. Sridevi Bautista APRN [address], [address], [place], [address], [employer] 03/30/2024 11:23:27 04/28/2024 text/html OV 04/28/2024:He re to establish care Present Hx:Has noted R sided R groin pain, states that she has been frustrated that this has not yet been diagnosed and why she should have this type of nagging pain, she has not had any detailed imaging done yet Gus Sanabria MD [address], [address], [place], [address], [facility] 05/14/2024 19:56:21 OBGyn Episode No OBEpisode recorded.
== END 2024-07-02 13:09 | disposition home or self-care (01) ==
PROVIDERS: PCP Internal Medicine; Visit Provider Orthopaedic Surgery
DX: M16.0 Bilateral primary osteoarthritis of hip (principal); M46.1 Sacroiliitis, not elsewhere classified; M43.06 Spondylolysis, lumbar region; M85.38 Osteitis condensans, other site
CPT/HCPCS: 72192